=== PATIENT | male | born 1945 | race Caucasian/White ===

== ENCOUNTER → 2016-07-26 | Outpatient (CLI) | payer OTHER, MEDICARE ==
[~2016-07-26] MED LIST: ALBU8.5H6 INH; AMLO5TAB2 PO; BUDE10.2 IH; DOCU100C5 PO; FINA5TAB4 PO; IOHEXOL 180 MG/ML 10 ML VIAL. ONE; IPRA0.2S5 NEB; METH-37 PO; OMEG1CAP38 PO; OMEP20CA9 PO; SILD50TA PO; TERA10CA3 PO; TRAM50TA PO; VITA1TAB3 PO; ZOLP10TA4 PO; methylPREDNISolone ACETATE 40 MG/ML VIAL. ONE; methylPREDNISolone ACETATE 80 MG/ML VIAL. ONE
--- NOTE | 2016-07-27 01:06 | PAIN ---
DATE OF SERVICE: 07/26/2016 DIAGNOSES: Lumbar radiculopathy with lumbar degenerative disk disease, spinal stenosis and post-lumbar laminectomy syndrome. HISTORY OF PRESENT ILLNESS: The patient is a 71-year-old male who returns for followup status post lumbar epidural steroid injections, last seen 12/18/2015. The patient has undergone epidural injections with very good results about 50-75% improvement, but now the pain has returned. The patient has had interim surgery in April of this year, a L4 diskectomy for some significant stenosis, which is now ____ on new MRI scan, but still having pain across the low back and into the right hip and leg, mostly in the lateral and anterior aspect of the thigh and lateral posterior thigh on the right side. The patient reports he did very well after the surgery, but the pain began to return after significant extent in the same distribution. The patient did have a new MRI scan dated 07/17/2016 showing interval decompression and laminectomy at L4-L5 ____ the previous seen central stenosis, postoperative enhancing tissue in the epidural space extending superficially to the skin, small fluid collection within the laminectomy defect. L3-L4 shows extensive enhancing signal to the right of midline without convincing evidence of diskitis, moderate central stenosis is redemonstrated at that level also. L5-S1 shows severe degenerative disk narrowing with moderate annular bulging and bilateral hypertrophic facet arthrosis, moderate right neural foraminal stenosis, mild to moderate left neural foraminal stenosis. The patient reports no loss of motor function, significant tenderness however in the back and right leg, fatigue is much more easily than it used to, much worse with walking and standing. He walks about 10-15 minutes and then has to sit down and rest because the pain becomes more and more noticeable in the right lower extremity and low back. The patient reports a 10 on scale of 10 with standing and walking and 2 with sitting. PHYSICAL EXAMINATION: VITAL SIGNS: The patient's blood pressure 145/85, pulse 99, respirations 20, temperature 97.6 degrees Fahrenheit, weight is 196 pounds. GENERAL: The patient is awake, alert, oriented, appropriate, very pleasant demeanor. HEENT: Head shows normocephalic, atraumatic. Extraocular movements are intact and symmetrical. Oral cavity, mucous membranes are moist and pink. Dentition is intact. NECK: Shows anterior throat supple. Neck shows full rotational motion of the cervical spine without difficulty. CHEST: Shows normal on inspection. Breath sounds clear to auscultation bilaterally. HEART: Shows S1 and S2 clear. No murmurs are auscultated. ABDOMEN: Soft, nontender, nondistended. No palpable organomegaly is noted. No rebound or guarding demonstrated. BACK: The patient's back shows spine grossly midline, some moderate flattening of lumbar lordotic curvature is noted with extensive well-healed surgical scars in the midline. Lumbar paraspinous musculature shows symmetrical on inspection with palpation shows moderate tenderness with palpation bilaterally, but without radiation in the lumbar distribution. No tenderness over the sacrum or sacroiliac regions bilaterally. The patient does show good rotational motion all somewhat limited not secondary to any pain reported with extension and flexion, right and left lateral rotation. EXTREMITIES: The patient's lower extremities showed deep tendon reflexes 2+ in the patellar and 1+ tendo calcaneus tendons. Motor exam is strong with dorsiflexion, extension 5/5 with quadriceps and hamstring flexion as well. Options were discussed with the patient and the patient's old chart was reviewed and his current medication regimen updated. Current review of systems updated to date as well and we will proceed with a caudal approach epidural steroid injection today with fluoroscopic guidance. Risks were again discussed including, but not limited to bleeding, infection, possibility of epidural hematoma, subsequent neurologic compromise, dural punctures, headaches, spinal cord and/or nerve damage, side effects of steroid medication and poor results regarding pain control. The patient understands and wishes to proceed. The patient will return to clinic in approximately 2 weeks for followup, was counseled on return appointment, activity level and side effects to be aware of. DIAGNOSES: Lumbar radiculopathy with lumbar degenerative disk disease and spinal stenosis and post-lumbar laminectomy syndrome. PROCEDURE: Caudal approach epidural steroid injection using C-arm fluoroscopic guidance under sterile prep and drape using local anesthetic. Medication injected is 120 mg of Depo-Medrol plus 10 mL preservative free normal saline and 2 mL Isovue for contrast. CONDITION ON DISCHARGE: Stable. The patient tolerated the procedure well, had no complications. MARGIE HENAO MD DR: JU/mary ellen JOB#: [id number] / [id number]
== END ==
LOC: PNCL 09:00
PROVIDERS: ATTEND Anesthesiology
DX: M51.16 Intervertebral disc disorders with radiculopathy, lumbar region (principal); M48.06 Spinal stenosis, lumbar region; M96.1 Postlaminectomy syndrome, not elsewhere classified
CPT/HCPCS: 62323; J1030; J1040

== ENCOUNTER → 2016-08-09 | Outpatient (CLI) | payer OTHER, MEDICARE ==
--- NOTE | 2016-08-10 00:02 | PAIN ---
DATE OF SERVICE: 08/09/2016 PROGRESS NOTE FOR PAIN CLINIC DIAGNOSES: Lumbar radiculopathy with lumbar degenerative disk disease, spinal stenosis and post-lumbar laminectomy syndrome. HISTORY OF PRESENT ILLNESS: The patient is a 71-year-old male who returns for followup status post caudal epidural steroid injection x 1. The patient reports about 25% improvement in the low back and right lower extremity. The patient reports still some pain that is not every day, but is still burning and aching, dull, anywhere from 1-6 on a scale of 10 or it went up to a 9 with increased activity. The patient reports otherwise he feels that he is doing well. He is very pleased with his progress thus far, reports no new motor or sensory deficits, no new bowel or bladder incontinence or other complaints. The patient reports no difficulty with sleeping and is actually sleeping well at night. The pain is mostly with activity during the day, standing, walking and change from standing, sitting position is somewhat difficult when the pain is at its worst. PHYSICAL EXAMINATION: VITAL SIGNS: The patient's blood pressure is ____/75, pulse 83, respirations are 20, temperature 97.9 degrees Fahrenheit, weight is 195 pounds. GENERAL: The patient is awake, alert, oriented, appropriate, very pleasant demeanor. HEENT: Head shows normocephalic, atraumatic. Extraocular movements are intact and symmetrical. Oral cavity shows mucous membranes moist and pink. Dentition is intact. NECK: Shows anterior throat supple without palpable lymphadenopathy noted. Swallow reflex is symmetrical. CHEST: Shows normal on inspection. Breath sounds are clear to auscultation bilaterally. HEART: Shows S1 and S2 clear. No murmurs auscultated. ABDOMEN: Soft, nontender, nondistended. No palpable organomegaly is noted. No rebound or guarding demonstrated. BACK: Shows spine grossly in the midline. There is a well-healed surgical scar in the lumbar distribution in the midline. Lumbar paraspinous muscle shows symmetrical with inspection, with palpation shows normal muscle girth, somewhat firm musculature bilaterally in the middle and lower distribution of the paraspinous muscles, but only very mildly diffusely tender without radiation or trigger points. The patient has good rotational motion of the lumbar spine, both laterally as well as extension and flexion without difficulty. EXTREMITIES: The patient's lower extremities showed deep tendon reflexes at 2+ in the patellar tendons, 1+ tendo calcaneus tendons. Motor exam is strong with 5/5 dorsiflexion, extension, quadriceps and hamstring flexion and is equal and symmetrical bilaterally. Options were discussed with the patient. The patient's old chart was reviewed and his current medication regimen updated. Current review of systems is updated today. We will proceed with a second in the series of caudal approach epidural steroid injection with fluoroscopic guidance. Risks were again discussed including, but not limited to bleeding, infection, possibility of epidural hematoma, subsequent neurologic compromise, dural puncture, headaches, spinal cord and/or nerve damage, side effects of steroid medication and poor results regarding pain control. The patient understands and wishes to proceed. The patient will return to the clinic in approximately 2 weeks for followup, was counseled on return appointment, activity level and side effects to be aware of. DIAGNOSES: Lumbar radiculopathy with lumbar spinal stenosis, degenerative disk disease and post-laminectomy syndrome. PROCEDURE: Caudal approach epidural steroid injection using C-arm fluoroscopic guidance under sterile prep and drape using local anesthetic. MEDICATIONS INJECTED: 120 mg of Depo-Medrol plus 10 mL of preservative-free normal saline and 2 mL of Isovue for contrast. CONDITION AT DISCHARGE: Stable. The patient tolerated the procedure well, had no complications. MARGIE HENAO MD DR: JU/mary ellen JOB#: [id number] / [id number]
== END | disposition home or self-care (01) ==
LOC: PNCL 09:12
PROVIDERS: ATTEND Anesthesiology
DX: M51.16 Intervertebral disc disorders with radiculopathy, lumbar region (principal); M48.06 Spinal stenosis, lumbar region; M96.1 Postlaminectomy syndrome, not elsewhere classified
CPT/HCPCS: 62323; J1030; J1040

== ENCOUNTER → 2016-08-23 | Outpatient (CLI) | payer OTHER, MEDICARE ==
--- NOTE | 2016-08-23 16:13 | PAIN ---
DATE OF SERVICE: 08/23/2016 DIAGNOSES: Lumbar radiculopathy with lumbar degenerative disk disease, lumbar spinal stenosis and post-lumbar laminectomy syndrome. HISTORY OF PRESENT ILLNESS: The patient is a 71-year-old male, who returns for followup status post caudal epidural steroid injection x 2. The patient reports about 40%-50% improvement overall. Still some pain in the low back and leg on the right side, but significantly improved. The patient has been increasing daily activities greater ease and comfort, has been riding horse without significant discomfort and is very pleased with the progress. The patient reports pain anywhere from a 2 to 8 on a scale of 10, 8 only with his worst days. ____ most of the day, currently 2 on a scale of 10 today. The patient reports he has been sleeping well at night. The pain does not awaken him from sleep. He is sleeping 6-7 hours a night comfortably, reports no new motor or sensory deficits, no new bowel or bladder incontinence or other complaints. PHYSICAL EXAMINATION: VITAL SIGNS: The patient's blood pressure 148/98, pulse 87, respirations are 20, temperature 97.9 degrees Fahrenheit. Weight is 195 pounds. GENERAL: The patient is awake, alert, oriented, appropriate, very pleasant demeanor. HEENT: Head shows normocephalic, atraumatic. Extraocular movements are intact and symmetrical. Oral cavity, mucous membranes are moist and pink. Dentition is intact. NECK: Shows anterior throat supple without palpable lymphadenopathy noted. Swallow reflex is symmetrical. CHEST: Shows normal on inspection. Breath sounds clear to auscultation bilaterally. HEART: Shows S1 and S2 clear. ABDOMEN: Soft, nontender, nondistended. No palpable organomegaly. No rebound or guarding demonstrated. BACK: Shows spine grossly midline, some flattening of the lumbar lordotic curvature again appreciated with well-healed surgical scar in the midline. Lumbar paraspinous musculature is symmetrical on inspection with palpation shows some moderate tenderness with palpation only in the low lumbar distribution only diffusely and no radiation. EXTREMITIES: Lower extremities showed deep tendon reflexes at 2+ in the patellar, 1+ tendo-calcaneus tendons are equal. Motor exam is strong with 5/5 dorsiflexion, extension, quadriceps and hamstring flexion. Options were discussed with the patient and the patient's old chart was reviewed as his current medication regimen updated. Current review of systems updated today as well. We will proceed with a third in the series of caudal epidural steroid injection with fluoroscopic guidance. Risks were again discussed including, but not limited to bleeding, infection, possibility of epidural hematoma, subsequent neurologic compromise, dural puncture, headaches, spinal cord and/or nerve damage, side effects of steroid medication and poor results regarding pain control. The patient understands and wishes to proceed. The patient will return to the clinic in approximately 2 weeks for followup, was counseled on return appointment, activity level and side effects to be aware of. DIAGNOSES: Lumbar radiculopathy with lumbar degenerative disk disease, spinal stenosis and post-lumbar laminectomy syndrome. PROCEDURE: Caudal approach epidural steroid injection using C-arm fluoroscopic guidance under sterile prep and drape using local anesthetic. MEDICATIONS INJECTED: Depo-Medrol 120 mg plus 10 mL of preservative-free normal saline and 2 mL of Isovue for contrast. CONDITION AT DISCHARGE: Stable. The patient tolerated the procedure well, had no complications. MARGIE HENAO MD DR: JU/mary ellen JOB#: [id number] / [id number]
== END | disposition home or self-care (01) ==
LOC: PNCL 08:22
PROVIDERS: ATTEND Anesthesiology
DX: M51.16 Intervertebral disc disorders with radiculopathy, lumbar region (principal); M48.06 Spinal stenosis, lumbar region; M96.1 Postlaminectomy syndrome, not elsewhere classified
CPT/HCPCS: 62323; J1030; J1040

== ENCOUNTER → 2016-10-15 | Outpatient (CLI) | payer OTHER, MEDICARE ==
[~2016-10-15] MED LIST changes: +DOCU100C28 PO; -DOCU100C5 PO; -IOHEXOL 180 MG/ML 10 ML VIAL. ONE; -methylPREDNISolone ACETATE 40 MG/ML VIAL. ONE; -methylPREDNISolone ACETATE 80 MG/ML VIAL. ONE
== END | disposition home or self-care (01) ==
LOC: PNCL 09:20
PROVIDERS: ATTEND Anesthesiology
DX: M48.06 Spinal stenosis, lumbar region (principal); M51.16 Intervertebral disc disorders with radiculopathy, lumbar region; M96.1 Postlaminectomy syndrome, not elsewhere classified
CPT/HCPCS: G0463

== ENCOUNTER → 2017-01-16 | Outpatient (CLI) | payer OTHER, MEDICARE ==
[~2017-01-16] MED LIST changes: +IOHEXOL 180 MG/ML 10 ML VIAL. ONE; +methylPREDNISolone ACETATE 40 MG/ML VIAL. ONE; +methylPREDNISolone ACETATE 80 MG/ML VIAL. ONE
--- NOTE | 2017-01-17 06:08 | PAIN ---
DATE OF SERVICE: 01/16/2017 DIAGNOSES: Lumbar radiculopathy with lumbar degenerative disk disease, spinal stenosis, and post lumbar laminectomy syndrome. HISTORY OF PRESENT ILLNESS: The patient is a 71-year-old male who returns for followup status post caudal epidural steroid injections x 3, last seen on 10/15/2016. The patient did very well after the injection in August, about 50% improvement overall. The patient reports still significant pain across the low back and into the bilateral lower extremities, somewhat more on the right than the left, but tolerable. The patient has been having some physical therapy done and some chiropractic treatments, which he feels are helpful and reports his pain has decreased to as high as a 9 on a scale of 10, but is generally about a 6 and can be as low as a 4, which is where it is today. The patient reports it is aching, tingling, burning and radiating stabbing pain at times, can be throbbing and aching as well, again worse on the right lower extremity than the left in the posterior gluteus, posterior thigh and across the low back. The patient reports no new motor or sensory deficits. No new bowel or bladder incontinence. Reports awaking him from sleep occasionally, but not every night. He sleeps about 6 hours at a time and can easily reposition and get back to sleep. PHYSICAL EXAMINATION: VITAL SIGNS: Today, the patient's blood pressure is 144/____ pulse 78, respirations 18, temperature 98.1 degrees Fahrenheit, height is 5 feet 10 inches and weighs 196 pounds. GENERAL: The patient is awake, alert, oriented, appropriate, is a very pleasant demeanor. HEENT: Shows normocephalic, atraumatic. Extraocular movements intact and symmetrical. Oral cavity, mucous membranes are moist and pink. Dentition is intact. NECK: Shows anterior throat supple without palpable lymphadenopathy noted. Swallow reflex is symmetrical. CHEST: Shows normal with inspection. Breath sounds are clear to auscultation bilaterally. HEART: Shows S1, S2 clear. ABDOMEN: Soft, nontender, nondistended. No palpable organomegaly. There is no rebound or guarding demonstrated. BACK: Shows spine grossly in midline with some normal appearing thoracic kyphosis and flattening lumbar lordotic curvature. Previously well healed surgical scar is noted in the lumbar distribution. Lumbar paraspinous muscle shows symmetrical with inspection. On palpation, shows moderate tenderness with palpation in the low lumbar distribution only, slightly more on the right than the left, but present bilaterally, appears roughly symmetrical. No evidence of atrophy or hypertrophy. No trigger points. No radiation of pain. The patient has good rotation and motion of the lumbar spine, both laterally as well as extension and flexion without significant increase in pain. Lower extremities show deep tendon reflexes 2+ in the patella, 1+ tendo calcaneus tendons, are equal. Motor exam is strong with 5/5 dorsiflexion, extension, quadriceps and hamstring flexion. Peripheral pulses are 1+ posterior tibial and dorsalis pedis pulses. No peripheral edema is noted. Options were discussed with the patient. The patient's old chart was reviewed as her current medication regimen and updated. Current review of systems is updated today as well. We will proceed with the first in the series caudal approach epidural steroid injections with fluoroscopic guidance. Risks were discussed including, but not limited to bleeding, infection, possibility of epidural hematoma, and subsequent neurologic compromise, dural puncture, headaches, spinal cord and/or nerve damage, side effects of steroid medication, and poor results regarding pain control. The patient understands and wished to proceed. The patient will return to the clinic in approximately 2 weeks for followup, was counseled on return appointment, activity level and side effects to be aware of. DIAGNOSES: Lumbar radiculopathy with lumbar degenerative disk disease, spinal stenosis and post lumbar laminectomy syndrome. PROCEDURE: Caudal approach epidural steroid injection using C-arm fluoroscopic guidance under sterile prep and drape using local anesthetic. MEDICATIONS INJECTED: A total of 120 mg Depo-Medrol plus 10 mL preservative-free normal saline and 2 mL Isovue for contrast. CONDITION AT DISCHARGE: Stable. The patient tolerated the procedure well, had no complication. MARGIE HENAO MD DR: JU/mary ellen JOB#: [id number] / [id number]
== END | disposition home or self-care (01) ==
LOC: PNCL 10:28
PROVIDERS: ATTEND Anesthesiology
DX: M51.16 Intervertebral disc disorders with radiculopathy, lumbar region (principal); M48.06 Spinal stenosis, lumbar region; M96.1 Postlaminectomy syndrome, not elsewhere classified
CPT/HCPCS: 62323; J1030; J1040

== ENCOUNTER → 2017-01-30 | Outpatient (CLI) | payer OTHER, MEDICARE ==
--- NOTE | 2017-01-30 10:56 | PAIN ---
DATE OF SERVICE: 01/30/2017 PROGRESS NOTE FOR PAIN CLINIC DIAGNOSES: Lumbar radiculopathy with lumbar degenerative disk disease, spinal stenosis and post-lumbar laminectomy syndrome. HISTORY OF PRESENT ILLNESS: The patient is a 71-year-old male who returns for followup status post caudal epidural steroid injection x 1 with about 50% improvement. The patient is very pleased with his progress. He has been a quite a bit better with his increasing activity with greater ease and comfort and sleeping better at night. The patient reports his pain is still in the low back and the left lower extremity, posterior gluteus, posterior thigh, posterior calf with burning, cramping, aching pain and also in the top of his foot, the left side but much improved after last injection. The patient reports it is 7 on a scale of 10 at its worst, 4 on averages of 4 on a scale 10 today. The patient reports no new motor or sensory deficits, no new bowel or bladder incontinence or other complaints, sleeping better at night about 6 hours at a time. It does awaken him from sleep occasionally but not every night. The patient reports no new motor or sensory deficits, no new bowel or bladder incontinence or other complaints. PHYSICAL EXAMINATION: VITAL SIGNS: The patient's blood pressure 147/82, pulse 84, respirations 18, temperature 97.8 degrees Fahrenheit, height is 5 feet 10 inches and weighs 196 pounds. GENERAL: The patient is awake, alert, oriented, appropriate and very pleasant demeanor. HEENT: Head shows normocephalic and atraumatic. Extraocular movements are intact and symmetrical. Oral cavity shows mucous membranes moist and pink. Dentition is intact. NECK: Shows anterior throat supple. CHEST: Shows normal on inspection. Breath sounds clear to auscultation bilaterally. HEART: Shows S1 and S2 clear. ABDOMEN: Soft, nontender and nondistended. No palpable organomegaly. There is no rebound or guarding demonstrated. BACK: The patient's back shows spine grossly in the midline. Well healed surgical scars noted in the lumbar distribution with some flattening of the lumbar lordotic curvature. Lumbar paraspinous musculature shows some moderate tenderness with palpation but is symmetrical on inspection and only diffusely tender without radiation. EXTREMITIES: Lower extremities show deep tendon reflexes 2+ in the patellar, 1+ tendo-calcaneus tendons, are equal. Motor exam is strong with 5/5 dorsiflexion, extension, quadriceps and hamstring flexion. Peripheral pulses are 1+ posterior tibial and equal. Options were discussed with the patient and the patient's old chart was reviewed as his current medication regimen updated. Current review of systems updated today as well and we will proceed with a second in the series caudal epidural steroid injection today with fluoroscopic guidance. Risks were again discussed including but not limited to bleeding, infection, possibility of epidural hematoma, subsequent neurologic compromise, dural puncture, headaches, spinal cord and/or nerve damage, side effects of steroid medication and poor results regarding pain control. The patient understands and wishes to proceed. The patient will return to clinic in approximately 2 weeks for followup, was counseled on return appointment, activity level and side effects to be aware of. DIAGNOSES: Lumbar radiculopathy with lumbar degenerative disk disease, spinal stenosis and post-lumbar laminectomy syndrome. PROCEDURE: Caudal approach epidural steroid injection using C-arm fluoroscopic guidance under sterile prep and drape using local anesthetic. MEDICATIONS INJECTED: Total of 120 mg of Depo-Medrol plus 10 mL of preservative-free normal saline and 2 mL of Isovue for contrast. CONDITION AT DISCHARGE: Stable. The patient tolerated procedure well, had no complications. MARGIE HENAO MD DR: JU/nts JOB#: [id number] / [id number]
== END | disposition home or self-care (01) ==
LOC: PNCL 08:53
PROVIDERS: ATTEND Anesthesiology
DX: M51.16 Intervertebral disc disorders with radiculopathy, lumbar region (principal); M48.061 Spinal stenosis, lumbar region without neurogenic claudication; M96.1 Postlaminectomy syndrome, not elsewhere classified
CPT/HCPCS: 62323; J1030; J1040

== ENCOUNTER → 2017-03-04 | Outpatient (CLI) | payer OTHER, MEDICARE ==
--- NOTE | 2017-03-05 00:08 | PAIN ---
DATE OF SERVICE: 03/04/2017 DIAGNOSES: Lumbar radiculopathy with lumbar degenerative disk disease, lumbar spinal stenosis and post-lumbar laminectomy syndrome. HISTORY OF PRESENT ILLNESS: The patient is a 71-year-old male who returns for followup status post caudal epidural steroid injection x 2, last seen on 01/30/2017. The patient did very well with this, about 60% improvement, still complains of low back and left lower extremity pain now returning. It is a burning severe pain in the low back itself in the posterior gluteus, posterior thigh and the hip as well as in the posterior calf and into the lateral foot on the left side. Right side is resolved nearly completely. The patient reports the pain is burning and severe, radiating, stabbing, dull, also tight and sharp at times. He reports it is 8 on a scale of 10 at its worse, a 6 on average and 2 at its least. The patient reports it is a 3 today. The patient reports it has not been awakening him from sleep at night, is much better with lying down or sitting down and again after last injection was doing much better, had much greater ability to perform daily activities, sleeping well, continues to sleep well at night without disturbance from the pain. No new motor or sensory deficits. No new bowel or bladder incontinence or other complaints. PHYSICAL EXAMINATION: VITAL SIGNS: The patient's blood pressure 131/86, pulse 98, respirations are 18, temperature 98.4 degrees Fahrenheit, height is 5 feet 10 inches and weight is 197 pounds. GENERAL: The patient is awake, alert, oriented, appropriate and very pleasant demeanor. HEENT: Head shows normocephalic and atraumatic. Extraocular movements are intact and symmetrical. Oral cavity shows mucous membranes moist and pink. Dentition is intact. NECK: Shows anterior throat supple without palpable lymphadenopathy noted. Swallow reflex is symmetrical. CHEST: Normal on inspection. Breath sounds are clear to auscultation bilaterally. HEART: Shows S1 and S2 clear. ABDOMEN: Soft, nontender and nondistended. No palpable organomegaly. There is no rebound or guarding demonstrated. MUSCULOSKELETAL: The patient's back shows spine grossly in the midline. Normal appearing thoracic kyphosis and some flattening of lumbar lordotic curvature. There is a well-healed surgical scar noted. Lumbar paraspinous muscle shows symmetrical with palpation. With palpation shows moderate tenderness bilaterally in the middle and lower distribution, but only diffusely and appears roughly symmetrical. No evidence of atrophy or hypertrophy. The patient has good rotational motion both laterally as well as extension and flexion without any exacerbation of pain. Lower extremities showed deep tendon reflexes at 2+ in the patellar and 1+ tendo calcaneus tendons are equal. Motor exam is strong with 5/5 dorsiflexion, extension, quadriceps and hamstring flexion and symmetrical as well. Peripheral pulses are 1+ posterior tibial. No peripheral edema is noted bilaterally. Options were discussed with the patient and the patient's old chart was reviewed. His current medication regimen updated. Current review of systems updated today as well. We will proceed with a third in the series caudal approach epidural steroid injection with fluoroscopic guidance. Risks were again discussed including, but not limited to bleeding, infection, possibility of epidural hematoma, subsequent neurologic compromise, dural puncture, headaches, spinal cord and/or nerve damage, side effects of steroid medication and poor results regarding pain control. The patient understands and wishes to proceed. The patient will return to the clinic in approximately 2 weeks for followup. He was counseled on return appointment, activity level and side effects to be aware of. DIAGNOSIS: Lumbar radiculopathy with lumbar degenerative disk disease, post-lumbar laminectomy syndrome and spinal stenosis. PROCEDURE: Caudal approach epidural steroid injection using C-arm fluoroscopic guidance under sterile prep and drape using local anesthetic. MEDICATIONS INJECTED: A total of 120 mg of Depo-Medrol plus 10 mL preservative free normal saline and 2 mL Isovue for contrast. CONDITION AT DISCHARGE: Stable. The patient tolerated the procedure well and had no complications. MARGIE HENAO MD DR: JU/mary ellen JOB#: [id number] / [id number]
== END | disposition home or self-care (01) ==
LOC: PNCL 10:33
PROVIDERS: ATTEND Anesthesiology
DX: M51.16 Intervertebral disc disorders with radiculopathy, lumbar region (principal); M48.061 Spinal stenosis, lumbar region without neurogenic claudication; M96.1 Postlaminectomy syndrome, not elsewhere classified
CPT/HCPCS: 62323; J1030; J1040

== ENCOUNTER → 2017-08-07 | Outpatient (CLI) | payer OTHER, MEDICARE ==
[~2017-08-07] MED LIST changes: -ALBU8.5H6 INH; -AMLO5TAB2 PO; -BUDE10.2 IH; -DOCU100C28 PO; -FINA5TAB4 PO; +IOHEXOL 180 MG/ML 10 ML VIAL.; -IOHEXOL 180 MG/ML 10 ML VIAL. ONE; -IPRA0.2S5 NEB; -METH-37 PO; -OMEG1CAP38 PO; -OMEP20CA9 PO; -SILD50TA PO; -TERA10CA3 PO; -TRAM50TA PO; -VITA1TAB3 PO; -ZOLP10TA4 PO; +methylPREDNISolone ACETATE 40 MG/ML VIAL.; -methylPREDNISolone ACETATE 40 MG/ML VIAL. ONE; +methylPREDNISolone ACETATE 80 MG/ML VIAL.; -methylPREDNISolone ACETATE 80 MG/ML VIAL. ONE
== END ==
LOC: PNCL 11:20
DX: M51.16 Intervertebral disc disorders with radiculopathy, lumbar region (principal); M96.1 Postlaminectomy syndrome, not elsewhere classified; M48.061 Spinal stenosis, lumbar region without neurogenic claudication
CPT/HCPCS: 62323; J1030; J1040; Q9965

== ENCOUNTER → 2017-09-04 | Outpatient (CLI) | payer OTHER, MEDICARE | LOC: PNCL 09:07 | DX: M51.16 Intervertebral disc disorders with radiculopathy, lumbar region (principal); M96.1 Postlaminectomy syndrome, not elsewhere classified; M48.061 Spinal stenosis, lumbar region without neurogenic claudication | CPT/HCPCS: 62323; J1030; J1040; Q9965 ==

== ENCOUNTER → 2017-10-20 | Outpatient (CLI) | payer OTHER, MEDICARE ==
[~2017-10-20] MED LIST changes: +BUPIVACAINE MPF 0.25% 10 ML VIAL.
== END ==
LOC: PNCL 09:26
DX: M51.16 Intervertebral disc disorders with radiculopathy, lumbar region (principal); M48.061 Spinal stenosis, lumbar region without neurogenic claudication; M96.1 Postlaminectomy syndrome, not elsewhere classified; Z79.899 Other long term (current) drug therapy
CPT/HCPCS: 62323; J1030; J1040; J3490; Q9965

== ENCOUNTER → 2018-02-16 | Outpatient (CLI) | payer OTHER ==
[~2018-02-16] MED LIST changes: +ALBU8.5H6 INH; +AMLO5TAB7 PO; +BUDE10.2 IH; -BUPIVACAINE MPF 0.25% 10 ML VIAL.; +DOCU100C28 PO; +FINA5TAB4 PO; -IOHEXOL 180 MG/ML 10 ML VIAL.; +IOHEXOL 180 MG/ML 10 ML VIAL. ONE; +IPRA0.2S5 NEB; +LIDOCAINE 1% PF 2 ML VIAL. ONE; +METH-37 PO; +OMEG1CAP38 PO; +OMEP20CA9 PO; +SILD50TA PO; +TERA10CA3 PO; +TRAM50TA PO; +VITA1TAB3 PO; +ZOLP10TA4 PO; -methylPREDNISolone ACETATE 40 MG/ML VIAL.; +methylPREDNISolone ACETATE 40 MG/ML VIAL. ONE; -methylPREDNISolone ACETATE 80 MG/ML VIAL.; +methylPREDNISolone ACETATE 80 MG/ML VIAL. ONE
--- NOTE | 2018-02-16 21:05 | PAIN ---
DATE OF SERVICE: 02/16/2018 PROGRESS NOTE FOR PAIN CLINIC DIAGNOSES: Lumbar radiculopathy with lumbar spinal stenosis, lumbar degenerative disk disease and post lumbar laminectomy syndrome. HISTORY OF PRESENT ILLNESS: The patient is a 72-year-old male who returns for followup status post caudal epidural steroid injections, most recently on 10/20/2017. The patient did very well with this with about a 50% improvement that is now down to about 30% overall. Pain is in the low back into the bilateral lower extremities, more on the left than the right. The patient reports it is a 9 on a scale of 10 at its worst, 9 on average, 3 at its least and a 4 today. The patient reports it is burning, aching, shooting, stabbing and sometimes sharp, sometimes dull across the low back and into the left leg. The patient reports no new motor or sensory deficits, no new bowel or bladder incontinence or other complaints. PHYSICAL EXAMINATION: VITAL SIGNS: The patient's blood pressure is 121/52, pulse 60, respirations 18, temperature 98.1 degrees Fahrenheit. Height is 5 feet 10 inches, weight is 191 pounds. GENERAL: The patient is awake, alert, oriented, appropriate, very pleasant demeanor. HEENT: Head is normocephalic, atraumatic. Extraocular movements intact and symmetrical. Oral cavity: Mucous membranes moist and pink. Dentition is intact. NECK: Shows anterior throat supple without palpable lymphadenopathy noted. Swallow reflex is symmetrical. CHEST: Shows normal on inspection. Breath sounds clear to auscultation bilaterally. HEART: Shows S1, S2 clear. No murmurs auscultated. BACK: The patient's back shows spine grossly in the midline. Normal appearing thoracic kyphosis, some flattening of lordotic curvature with well-healed extensive midline surgical scar. Lumbar paraspinous muscle shows symmetrical on inspection, with palpation shows some moderate tenderness in upper, middle and lower distribution of paraspinous musculature without radiation, but with significant tenderness mainly in the lowest area of the lumbar paraspinous musculature. No radiation, no trigger points. There is good rotational motion of lumbar spine both laterally as well as extension and flexion. No tenderness over the sacrum or sacroiliac regions. EXTREMITIES: Lower extremities show deep tendon reflexes 2+ in the patellar and 1+ in tendo calcaneus tendons. Motor exam is strong with 5/5 dorsiflexion, extension, quadriceps and hamstring flexion and symmetrical. Peripheral pulses are 1+ posterior tibial. No peripheral edema is noted. Options were discussed with the patient. The patient's old chart was reviewed as his current medication regimen updated. Current review of systems updated today as well. We will proceed with a caudal approach epidural steroid injection today with fluoroscopic guidance. Risks were again discussed including, but not limited to, bleeding, infection, possibility of epidural hematoma, subsequent neurologic compromise, dural puncture, headaches, spinal cord and/or nerve damage, side effects of steroid medication and poor results regarding pain control. The patient understands and wished to proceed. The patient to return to clinic in approximately 2 weeks for followup, was counseled on his return appointment as well as side effects to be aware of. We also discussed the spinal cord stimulator with the patient and gave him some information to read about this and learn more. He will contact the office with any questions. DIAGNOSES: Lumbar radiculopathy with lumbar spinal stenosis, lumbar degenerative disk disease and post lumbar laminectomy syndrome. PROCEDURE: Caudal approach epidural steroid injection using C-arm fluoroscopic guidance under sterile prep and drape using local anesthetic. MEDICATIONS INJECTED: A total of 120 mg of Depo-Medrol plus 10 mL of preservative-free normal saline and 2 mL of Isovue for contrast. CONDITION ON DISCHARGE: Stable. The patient tolerated the procedure well, had no complications. MARGIE HENAO MD DR: JU/mary ellen JOB#: [id number] / [id number]
== END | disposition home or self-care (01) ==
LOC: PNCL 08:28
PROVIDERS: ATTEND Anesthesiology
DX: M51.16 Intervertebral disc disorders with radiculopathy, lumbar region (principal); M48.061 Spinal stenosis, lumbar region without neurogenic claudication; M96.1 Postlaminectomy syndrome, not elsewhere classified
CPT/HCPCS: 62323; J1030; J1040; Q9965

== ENCOUNTER → 2018-04-30 | Outpatient (CLI) | payer OTHER ==
[~2018-04-30] MED LIST changes: -LIDOCAINE 1% PF 2 ML VIAL. ONE
--- NOTE | 2018-04-30 10:26 | PAIN ---
DATE OF SERVICE: 04/30/2018 PROGRESS NOTE FOR PAIN CLINIC DIAGNOSES: Lumbar radiculopathy with lumbar degenerative disk disease, lumbar spinal stenosis and post-lumbar laminectomy syndrome. HISTORY OF PRESENT ILLNESS: The patient is a 72-year-old male who returns for followup status post caudal epidural steroid injections x 2, most recently on 03/30 and 02/16 prior to that. The patient reports he did very well with about a 60% improvement overall in the low back and left lower extremity greater than right, but still pain in both the legs. The patient reports it is a 9 on a scale of 10 at its worst, 7 on average, 3 at its least and is a 7 today. The patient reports it is aching, burning, radiating to the low back, mostly in the left posterior gluteus, posterior thigh, posterior calf as well as in the anterior aspect of the left leg. The patient reports no new motor or sensory deficits, no new bowel or bladder incontinence. We discussed a spinal cord stimulator with the patient, is awaiting preauthorization for a trial with his insurance provider. The patient reports it awakens him from sleep about every 7-8 hours. The patient reports no new motor or sensory deficits, no new bowel or bladder incontinence or other complaints. PHYSICAL EXAMINATION: VITAL SIGNS: The patient's blood pressure 134/85, pulse 87, respirations 16, temperature 97.9 degrees Fahrenheit. Weight is 196 pounds. GENERAL: The patient is awake, alert, oriented, appropriate, very pleasant demeanor. HEENT: Head shows normocephalic and atraumatic. Extraocular movements are intact and symmetrical. Oral cavity: Mucous membranes are moist and pink. Dentition is intact. NECK: Shows anterior throat is supple without palpable lymphadenopathy noted. Swallow reflex is symmetrical. CHEST: Shows normal with inspection. Breath sounds are clear to auscultation bilaterally. HEART: Shows S1 and S2 clear. No murmurs are auscultated. ABDOMEN: Soft, nontender and nondistended. No palpable organomegaly is noted. No rebound or guarding demonstrated. BACK: Shows spine grossly in the midline. Normal appearing thoracic kyphosis and lumbar lordotic curvature. Lumbar paraspinous muscle shows symmetrical on inspection. On palpation shows some moderate tenderness diffusely in the low lumbar distribution. Well-healed surgical scar is again noted. The patient shows good rotational motion of the lumbar spine both laterally as well as extension and flexion without difficulty. EXTREMITIES: The patient's lower extremities showed deep tendon reflexes at 2+ in the patellar tendons and 1+ tendo calcaneus tendons. Motor exam is strong with 5/5 dorsiflexion and extension. Peripheral pulses are 1+ in the posterior tibial distribution bilaterally. No peripheral edema is noted. Options were discussed with the patient. The patient's old chart was reviewed as was his current medication regimen updated. Current review of systems updated today as well. We will proceed with a caudal approach epidural steroid injection today third in the series with fluoroscopic guidance. Risks were again discussed including, but not limited to bleeding, infection, possibility of epidural hematoma, subsequent neurological compromise, dural puncture, headaches, spinal cord and/or nerve damage, side effects of steroid medication and poor results regarding pain control. The patient understands and wished to proceed. The patient will return to the clinic in approximately 2 weeks for followup, was counseled as to return appointment, activity level and side effects to be aware of. DIAGNOSES: Lumbar radiculopathy with lumbar degenerative disk disease, lumbar spinal stenosis and post-lumbar laminectomy syndrome. PROCEDURE: Caudal approach epidural steroid injection using C-arm fluoroscopic guidance under sterile prep and drape using local anesthetic. MEDICATION INJECTED: A total of 120 mg Depo-Medrol plus 10 mL of preservative free normal saline and 2 mL of Isovue for contrast. CONDITION AT DISCHARGE: Stable. The patient tolerated the procedure well and had no complications. MARGIE HENAO MD DR: JU/mary ellen JOB#: [id number] / [id number]
== END | disposition home or self-care (01) ==
LOC: PNCL 08:57
PROVIDERS: ATTEND Anesthesiology
DX: M51.16 Intervertebral disc disorders with radiculopathy, lumbar region (principal); M48.061 Spinal stenosis, lumbar region without neurogenic claudication; M96.1 Postlaminectomy syndrome, not elsewhere classified
CPT/HCPCS: 62323; J1030; J1040; Q9965

== ENCOUNTER → 2018-07-15 | Outpatient (CLI) | payer OTHER ==
[~2018-07-15] MED LIST changes: +AMLO5TAB10 PO; -AMLO5TAB7 PO; -IOHEXOL 180 MG/ML 10 ML VIAL. ONE; +LIDOCAINE 1% PF 2 ML VIAL. ONE; +OMEP20CA10 PO; -OMEP20CA9 PO; -methylPREDNISolone ACETATE 40 MG/ML VIAL. ONE; -methylPREDNISolone ACETATE 80 MG/ML VIAL. ONE
--- NOTE | 2018-07-16 03:00 | PAIN ---
DATE OF SERVICE: 07/15/2018 PROGRESS NOTE FOR PAIN CLINIC DIAGNOSES: Lumbar radiculopathy with lumbar degenerative disk disease, lumbar spinal stenosis and post-lumbar laminectomy syndrome. HISTORY OF PRESENT ILLNESS: The patient is a 73-year-old male who returns for followup status post epidural steroid injections and preauthorization for spinal cord stimulator temporary insertion trial. The patient has obtained this now as well as appropriate psychological evaluation with good category for implantable and spinal surgeries. The patient would like to proceed. However, still significant pain in the low back, left lower extremity, posterior gluteus, posterior thigh, lateral thigh, posterior calf, lateral calf as well on the left side greater than right, but across the low back as well. The patient reports the pain is 8 on a scale of 10 at its worst, 6 on average, 2 at its least and it is a 6 today. The patient reports it is tingling, burning, aching, shooting in the left leg, severe, becoming more constant with time and activity. The patient reports no new motor or sensory deficits, no new bowel or bladder incontinence or other complaints. It awakens him from sleep at least 4-5 times at night. PHYSICAL EXAMINATION: VITAL SIGNS: The patient's blood pressure 167/89, pulse 88, respirations are 16 and temperature is 97.5 degrees Fahrenheit. He is 5 feet 10 inches, weighs 191 pounds. GENERAL: The patient is awake, alert, oriented and appropriate, very pleasant demeanor. HEENT EXAMINATION: Shows normocephalic, atraumatic. Extraocular movements are intact and symmetrical. Oral cavity, mucous membranes are moist and pink. Dentition is intact. NECK: Shows anterior throat supple, without palpable lymphadenopathy noted. Swallow reflex is symmetrical. CHEST: Shows normal on inspection. Breath sounds are clear to auscultation bilaterally. HEART: Shows S1, S2 clear. No murmurs auscultated. ABDOMEN: Soft, nontender and nondistended. No palpable organomegaly is noted. No rebound or guarding demonstrated. BACK: Shows spine grossly in the midline. Normal-appearing thoracic kyphosis and flattening of the lumbar lordotic curvature fairly significantly, with well-healed surgical scarring noted as well. The patient shows good rotational motion with some limitation with extension and flexion secondary to pain and immobility from previous surgery. EXTREMITIES: The patient's lower extremities show deep tendon reflexes at 2+ in the patellar, 1+ tendo calcaneus tendons. Motor exam is strong with 5/5 dorsiflexion, extension, quadriceps and hamstring flexion and are symmetrical. Peripheral pulses are 1+ posterior tibial. No peripheral edema is noted bilaterally. Options were discussed with the patient. The patient's old chart was reviewed as was his current medication regimen updated. Current review of systems updated today as well. We will proceed with spinal cord stimulator temporary lead placement x 2. Risks were discussed including, but not limited to bleeding, infection, possibility of epidural hematoma and subsequent neurological compromise, dural punctures, headaches, spinal cord and/or nerve damage, side effects of exposure to fluoroscopy, potential poor results regarding pain control. The patient understands and wishes to proceed. The patient will return to clinic in approximately 1 week. We will plan on removal of the spinal cord stimulator leads at that time and assessment of the patient's progress through the week with pain reduction and decide at that point to pursue a more permanent stimulator system. DIAGNOSES: Lumbar radiculopathy with lumbar degenerative disk disease, lumbar spinal stenosis and post-lumbar laminectomy syndrome. PROCEDURE: Spinal cord stimulator temporary lead trial placement x 2. Under sterile prep and drape using local anesthetic, using C-arm fluoroscopic guidance with insertion at the L2-L3 level midline, using local anesthetic to anesthetize the skin, using a 14-gauge Wriggletead styletted needles x 2, with good access to the epidural space using preservative-free normal saline, loss of resistance technique with negative aspiration. Spinal cord stimulator leads were then threaded under direct visualization, both AP and lateral views, to assure posterior placement of the leads to the level of the superior endplate in the midline of T8 and superior endplate in the midline at T9. Again, confirmation was made with lateral views using C-arm fluoroscopic guidance. They were posterior in the epidural space. [place] were removed. Stylets were removed. Leads were secured to the skin using a suture and a sterile bandage and Mastisol, Tegaderm as well as gauze and tape sterilely placed above these. The patient tolerated the procedure well, had no complications. The patient left under his own power without immediate complication. MARGIE HENAO MD DR: JU/mary ellen JOB#: [id number] / [id number]
== END | disposition home or self-care (01) ==
LOC: PNCL 13:05
PROVIDERS: ATTEND Anesthesiology
DX: M51.16 Intervertebral disc disorders with radiculopathy, lumbar region (principal); M96.1 Postlaminectomy syndrome, not elsewhere classified; M48.061 Spinal stenosis, lumbar region without neurogenic claudication
CPT/HCPCS: 63650; C1897

== ENCOUNTER → 2018-07-20 | Outpatient (CLI) | payer OTHER ==
[~2018-07-20] MED LIST changes: -LIDOCAINE 1% PF 2 ML VIAL. ONE
--- NOTE | 2018-07-21 02:32 | PAIN ---
DATE OF SERVICE: 07/20/2018 DIAGNOSES: Lumbar radiculopathy with lumbar degenerative disk disease, lumbar spinal stenosis and post-lumbar laminectomy syndrome. HISTORY OF PRESENT ILLNESS: The patient is a 73-year-old male who returns for followup status post spinal cord stimulator temporary leads placement and returns today for removal of the leads. The patient reports still has significant pain in the low back and in his lower extremities as he had previously, especially in the left leg with burning sensation. He reports they did change him to a fourth program about 2 days ago, which decreased the pain significantly by about 50%, but he is still not certain if he wants to keep a permanent stimulator system. The patient reports no new motor or sensory deficits, no new changes, but still significant pain, which he reports was not significantly reduced other than the last 2 days from the stimulator temporary trial. The patient reports the pain is 8 on a scale of 10 at its worst, over the past week, is 6 on average and a 3 at its least and is a 6 today. The patient reports no new motor or sensory deficits, no new bowel or bladder incontinence, still sleeps well at night, does not bother him when he is lying down, much worse when he is walking, standing, changing positions. PHYSICAL EXAMINATION: VITAL SIGNS: The patient's blood pressure 142/82, pulse 99, respirations 18, temperature 98.3 degrees Fahrenheit, height is 5 feet 10 inches and weight is 191 pounds. GENERAL: The patient is awake, alert, oriented, appropriate, very pleasant demeanor. HEENT: Head shows normocephalic, atraumatic. Extraocular movements intact and symmetrical. Oral cavity: Mucous membranes moist and pink. Dentition is intact. NECK: Shows anterior throat supple without palpable lymphadenopathy noted. Swallow reflex symmetrical. CHEST: Shows normal with inspection. Breath sounds clear to auscultation bilaterally. HEART: Shows S1, S2 clear. ABDOMEN: Soft, nontender, nondistended. BACK: Shows spine grossly in the midline. The patient's back shows a well-bandaged temporary lead from spinal cord stimulator placement. Bandages were taken down, which reveals a clean, dry, no erythema, no tenderness at the area of the wire insertions. Sutures were cut under sterile prep and drape and the leads were removed x 2 with tips intact. Sites clean and dry, no erythema, no discharge, no tenderness. It was bandaged with a sterile bandage applied. EXTREMITIES: Lower extremities show deep tendon reflexes 2+ in the patellar, 1+ tendo-calcaneus tendons. Motor exam is strong with 5/5 dorsiflexion, extension and equal. Options were discussed with the patient. The patient's old chart was reviewed as his current medication regimen updated. Current review of systems updated today as well. We will have the patient return in approximately 1 week for potential caudal approach epidural steroid injection at that time. The patient is still unsure of the spinal cord stimulator effectiveness. We encouraged him to give it a few days to see how he feels before making any decisions. The patient will do so and return in about 1 week for followup as scheduled. MARGIE HENAO MD DR: JU/mary ellen JOB#: [id number] / [id number]
== END | disposition home or self-care (01) ==
LOC: PNCL 08:53
PROVIDERS: ATTEND Anesthesiology
DX: M51.16 Intervertebral disc disorders with radiculopathy, lumbar region (principal); M48.061 Spinal stenosis, lumbar region without neurogenic claudication; M96.1 Postlaminectomy syndrome, not elsewhere classified
CPT/HCPCS: G0463

== ENCOUNTER → 2018-07-27 | Outpatient (CLI) | payer OTHER ==
[~2018-07-27] MED LIST changes: +IOHEXOL 180 MG/ML 10 ML VIAL. ONE; +methylPREDNISolone ACETATE 40 MG/ML VIAL. ONE; +methylPREDNISolone ACETATE 80 MG/ML VIAL. ONE
--- NOTE | 2018-07-27 22:21 | PAIN ---
DATE OF SERVICE: 07/27/2018 DIAGNOSES: Lumbar radiculopathy with lumbar degenerative disk disease, lumbar spinal stenosis and post-lumbar laminectomy syndrome. HISTORY OF PRESENT ILLNESS: The patient is a 73-year-old male who returns for followup status post recent spinal cord stimulator trial. The patient without any significant improvement, actually pain he thought was actually worse with the spinal cord stimulator going. We removed those leads on 07/20/2018 and the patient returns today with pain still low back, left greater than right lower extremity radiating to posterior gluteus, posterior thigh, posterior calf, again worse on the left side. The patient reports it is an 8 on a scale of 10 at its worst, 6 on average, 3 at its least and is a 6 today. The patient reports it is aching and burning, becoming more constant and noticeable, worse with standing, walking, has not been waking him from sleep at night, better with sitting or lying down. The patient reports no new motor or sensory deficits, no new bowel or bladder incontinence. PHYSICAL EXAMINATION: VITAL SIGNS: The patient's blood pressure is 154/94, pulse 93, respirations 16, temperature 98.0 degrees Fahrenheit, weight is 193 pounds. GENERAL: The patient is awake, alert, oriented, appropriate, very pleasant demeanor. HEENT: Shows normocephalic, atraumatic. Extraocular movements are intact and symmetrical. Oral cavity: Mucous membranes are moist and pink. Dentition is intact. NECK: Shows anterior throat supple without palpable lymphadenopathy noted. Swallow reflex is symmetrical. CHEST: Shows normal on inspection. Breath sounds are clear to auscultation bilaterally. HEART: Shows S1, S2 clear. No murmurs auscultated. ABDOMEN: Soft, nontender, nondistended. No palpable organomegaly is noted. No rebound or guarding demonstrated. BACK: Shows spine grossly in the midline. Normal appearing thoracic kyphosis and some significant flattening of lumbar lordotic curvature. Well-healed surgical scarring noted. Lumbar paraspinous muscle shows symmetrical on inspection. On palpation shows some moderate tenderness diffusely bilaterally, but only diffusely without radiation. The patient has good rotational motion of lumbar spine, both laterally as well as extension and flexion. The patient's sites from previous spinal cord stimulator lead placed is very well healed with no erythema, no tenderness. EXTREMITIES: Lower extremities show deep tendon reflexes 2+ in the patellar, 1+ tendo-calcaneus tendons. Motor exam is strong with 5/5 dorsiflexion, extension, quadriceps and hamstring flexion and equal. Peripheral pulses are 1+ posterior tibia. No peripheral edema is noted bilaterally. Options were discussed with the patient. The patient's old chart was reviewed as his current medication regimen updated. Current review of systems is updated today as well. We will proceed with caudal approach epidural steroid injections, the second in this series today with fluoroscopic guidance. Risks were again discussed including, but not limited to bleeding, infection, possibility of epidural hematoma, subsequent neurological compromise, dural puncture, headaches, spinal cord and/or nerve damage, side effects of steroid medication and poor results regarding pain control. The patient understands and wished to proceed. The patient will return to the clinic in approximately 2 weeks for followup, was counseled on return appointment, activity level and side effects to be aware of. DIAGNOSES: Lumbar radiculopathy with lumbar degenerative disk disease, lumbar spinal stenosis and post-lumbar laminectomy syndrome. PROCEDURE: Caudal approach epidural steroid injection using C-arm fluoroscopic guidance under sterile prep and drape using local anesthetic. MEDICATION INJECTED: A total of 120 mg Depo-Medrol plus 10 mL of preservative-free normal saline and 2 mL of Isovue for contrast. CONDITION AT DISCHARGE: Stable. The patient tolerated the procedure well, had no complications. MARGIE HENAO MD DR: JU/mary ellen JOB#: [id number] / [id number]
== END | disposition home or self-care (01) ==
LOC: PNCL 08:29
PROVIDERS: ATTEND Anesthesiology
DX: M51.16 Intervertebral disc disorders with radiculopathy, lumbar region (principal); M48.061 Spinal stenosis, lumbar region without neurogenic claudication; M96.1 Postlaminectomy syndrome, not elsewhere classified
CPT/HCPCS: 62323; J1030; J1040; Q9965

== ENCOUNTER → 2019-11-10 | Outpatient (CLI) | payer OTHER ==
[~2019-11-10] MED LIST changes: -OMEP20CA10 PO; +OMEP20CA16 PO
--- NOTE | 2019-11-10 10:34 | PAIN ---
DATE OF SERVICE: 11/10/2019 PROGRESS NOTE FOR PAIN CLINIC DIAGNOSES: Lumbar radiculopathy with lumbar degenerative disk disease, lumbar spinal stenosis and lumbar post-laminectomy syndrome. HISTORY OF PRESENT ILLNESS: The patient is a 74-year-old male who returns for followup status post lumbar epidural steroid injections with caudal approach, most recently 07/2018. The patient did very well with about 80% improvement for about 3 months following the injection. The patient reports he has had difficulty getting referral back with his [facility], but he has changed physician, they got referral. He has had some pain going on for about 4-5 months now in the low back and left lower extremity, mostly in the posterior gluteus, posterior thigh and posterior calf. Rates it is a 9 on a scale of 10 at its worst over the past week, 7 on average, 3 at its least and is a 7 today. The patient reports it is aching, burning, shooting, radiating, becoming more severe, worse with walking, standing, changing positions, with sitting is better. He has to sit frequently though when he is working on his feet for more than about an hour. He has to sit and rest for about 10-15 minutes where he can get up and go again. The patient reports even that it is more significant, but better with lying down, does not awaken him from sleep at night, generally no new motor or sensory deficits, no new bowel or bladder incontinence. PHYSICAL EXAMINATION: VITAL SIGNS: The patient's blood pressure 146/94, pulse 105, respirations 18, temperature is 98.0 degrees Fahrenheit, height is 5 feet 10 inches, weighs 185 pounds. GENERAL: The patient is awake, alert, oriented, appropriate, very pleasant demeanor. HEENT: Shows normocephalic, atraumatic. Extraocular movements are intact and symmetrical. Oral cavity: Mucous membranes moist and pink. Dentition is intact. NECK: Shows anterior throat supple without palpable lymphadenopathy noted. Swallow reflex symmetrical. CHEST: Shows normal on inspection. Breath sounds are clear. No rales, rhonchi or wheezes auscultated. HEART: Shows S1, S2 clear. No murmurs auscultated. ABDOMEN: Soft, obese, nontender, nondistended. BACK: Shows spine grossly in the midline, slight exaggerated thoracic kyphosis and some minor flattening of lumbar lordotic curvature with well-healed surgical scarring noted. Lumbar paraspinous muscle shows symmetrical on inspection, on palpation shows some moderate tenderness diffusely bilaterally, but only diffusely throughout the upper, middle and lower distribution of paraspinous muscles without radiation. The patient has good rotational motion of lumbar spine, both laterally as well as extension and flexion without significant increase in pain. EXTREMITIES: Lower extremities show deep tendon reflexes at 1+ in the patellar and tendo-calcaneus tendons. Motor exam is 5/5 with dorsiflexion, extension, quadriceps and hamstring flexion symmetrical. Peripheral pulses are 1+ posterior tibia. No peripheral edema bilaterally. Options were discussed with the patient. The patient's old chart was reviewed as his current medication regimen updated. Current review of systems updated today as well and we will proceed with lumbar epidural steroid today with caudal approach using C-arm fluoroscopic guidance. Risks were again discussed including, but not limited to bleeding, infection, possibility of epidural hematoma, subsequent neurological compromise, dural puncture, headaches, spinal cord and/or nerve damage, side effects of steroid medication and poor results regarding pain control. The patient understands and wished to proceed. The patient will return to the clinic in approximately 2 weeks for followup. He was counseled on return appointment, activity level and side effects to be aware of. DIAGNOSES: Lumbar radiculopathy with lumbar degenerative disk disease, lumbar spinal stenosis, and lumbar post-laminectomy syndrome. PROCEDURE: Lumbar epidural steroid injection, caudal approach using C-arm fluoroscopic guidance under sterile prep and drape using local anesthetic. MEDICATION INJECTED: A total of 120 mg Depo-Medrol plus 10 mL of preservative-free normal saline and 2 mL of contrast. CONDITION AT DISCHARGE: Stable. The patient tolerated the procedure well, had no complications. MARGIE HENAO MD DR: JU/mary ellen JOB#: [id number] / [id number]
== END ==
LOC: PNCL 08:28
PROVIDERS: ATTEND Anesthesiology
DX: M51.16 Intervertebral disc disorders with radiculopathy, lumbar region (principal); M48.061 Spinal stenosis, lumbar region without neurogenic claudication; M96.1 Postlaminectomy syndrome, not elsewhere classified
CPT/HCPCS: 62323; J1030; J1040; Q9965

== ENCOUNTER → 2019-12-08 | Outpatient (CLI) | payer OTHER ==
--- NOTE | 2019-12-08 09:32 | PDOC ---
Progress Note - Pain Clinic Date of Service: DOS: DATE: 12/08/19 TIME: 09:29 Diagnosis: Dx: Lumbar radiculopathy with lumbar degenerative disc disease lumbar spinal stenosis and lumbar postlaminectomy syndrome History or Present Illness: HPI: 74-year-old male returns follow-up status post lumbar epidural injections caudal approach x1. Patient reports about 50% improvement for the first 2 weeks, then pain returning in the low back and left lower extremity posterior gluteus posterior thigh posterior calf patient which is burning and cramping radiating with walking standing walking also doing weed eating patient reports an 8 on a scale of 10 is worse of the past week 6 on average to its least is a 6 today. Patient ports no new motor or sensory deficits no new bowel or bladder incontinence still better with laying down or resting does not generally awaken him from sleep at night and better with sitting also. Physical Exam: VS: Blood pressure is 138/76 pulse 101 respirations 20 temperature is 90.4 F height is 5 feet 10 inches weight is 1 8 3 pounds PE: PHYSICAL EXAMINATION: GENERAL: The patient is awake, alert, oriented, appropriate, very pleasant demeanor HEENT: Shows normocephalic, atraumatic. Extraocular movements are intact and symmetrical. Oral cavity: Mucous membranes moist and pink. Dentition is intact. NECK: Shows anterior throat supple without palpable lymphadenopathy noted. Swallow reflex symmetrical. CHEST: Shows normal on inspection. Breath sounds are clear bilaterally, no rales rhonchi or wheezes auscultated. HEART: Shows S1, S2 clear. No murmurs auscultated. ABDOMEN: Soft, nontender, nondistended. No palpable organomegaly is noted. No rebound or guarding demonstrated. BACK: Shows spine grossly in the midline. Normal-appearing cervical lordotic curvature. There is slightly increased thoracic kyphosis, some minor flattening of the lumbar lordotic curvature. Lumbar paraspinous muscles show symmetrical on inspection, on palpation shows some moderate tenderness diffusely throughout the upper, middle and lower distribution of the paraspinous muscles bilaterally without specific trigger points, without radiation of pain. The patient has good rotational motion of the lumbar spine, both laterally as well as extension and flexion without significant difficulty. No tenderness over the spinous processes, sacrum or sacroiliac regions. EXTREMITIES: Lower extremities show deep tendon reflexes 1+ in the patellar and tendo calcaneus tendons. Motor exam is 5 on a scale of 5 with right dorsiflexion, extension, quadriceps and hamstring flexion and 5/5 on the left. Peripheral pulses are 1+ posterior tibial. [] peripheral edema is noted bilaterally. Lower extremities are warm and dry to touch, equal in color and appearance. SKIN: Shows warm and dry, good turgor. No edema. No sores, rashes or bruising throughout. Procedure: Procedure: Options were discussed with the patient. Patient's old chart was reviewed his his current medications were updated current review of systems updated today as well. We will proceed with a second in the series caudal approach epidural steroid injection today with fluoroscopic guidance. Risks are discussed including but not limited to bleeding infection possibility of epidural hematoma subsequent neurological compromise, dural puncture, headaches, spinal cord and/or nerve damage as well as poor results regarding pain control. Patient understands wished to proceed. Patient return to clinic in approximately 2 weeks for follow-up was counseled as to return appointment activity level and side effects to be aware of. Medication Injected: Med Injected: Procedure is lumbar epidural steroid injection under local anesthetic using derek rile prep and drape at the caudal level using C-arm fluoroscopic guidance in both AP and lateral views medications injected is 120 mg Depo-Medrol + 10 mL preservative-free normal saline and 2 mL Isovue for contrast- condition at discharge is stable patient tolerated procedure well had no complications. Condition at Discharge: Condition at Discharge: Condition at discharge is stable patient tolerated the procedure well had no complications. MARGIE HENAO MD Dec 08, 2019 09:32
== END | disposition home or self-care (01) ==
LOC: PNCL 08:38
PROVIDERS: ATTEND Anesthesiology
DX: M51.16 Intervertebral disc disorders with radiculopathy, lumbar region (principal); M48.061 Spinal stenosis, lumbar region without neurogenic claudication; M96.1 Postlaminectomy syndrome, not elsewhere classified; Z79.899 Other long term (current) drug therapy
CPT/HCPCS: 62323; J1030; J1040; Q9965

== ENCOUNTER → 2020-01-13 | Outpatient (CLI) | payer OTHER ==
--- NOTE | 2020-01-13 09:45 | PDOC ---
Progress Note - Pain Clinic Date of Service: DOS: DATE: 01/13/20 TIME: 09:42 Diagnosis: Dx: Lumbar radiculopathy with lumbar degenerative disc disease lumbar spinal stenosis and post lumbar laminectomy syndrome History or Present Illness: HPI: 74-year-old male returns follow-up status post caudal approach epidural steroid injection 2. Patient reports doing very well about 40% improvement overall has increased activity using a chainsaw and cutting up several trees last week which increases pain the low back and left lower extremity now describes as burning and aching in the low back radiating shooting into the left lower extremity tight and dull in the back radiating coming more constant with activity patient reports is better this week as he has been doing less activity but still significant patient rates his pain is 8 on a scale of 10 is worse over the past week 7 on average to displaces it to today. Patient reports that initially was doing much better with walking and doing house activities work activities as noted patient reports better with sitting or laying down does not awaken her from sleep at night patient reports no new motor or sensory deficits no new bowel or bladder incontinence or other complaints. Physical Exam: VS: Pressure is 143/80 pulse 99 respirations 18 temperature 98.7 F height is 5 feet 10 inches weight is 176 pounds PE: PHYSICAL EXAMINATION: GENERAL: The patient is awake, alert, oriented, appropriate, very pleasant demeanor HEENT: Shows normocephalic, atraumatic. Extraocular movements are intact and symmetrical. NECK: Shows anterior throat supple without palpable lymphadenopathy noted. Swallow reflex symmetrical. CHEST: Shows normal on inspection. Breath sounds are clear bilaterally, no rale s rhonchi or wheezes auscultated. HEART: Shows S1, S2 clear. No murmurs auscultated. ABDOMEN: Soft, nontender, nondistended. No palpable organomegaly is noted. BACK: Shows spine grossly in the midline. Normal-appearing cervical lordotic curvature. There is slightly increased thoracic kyphosis, some minor flattening of the lumbar lordotic curvature. Lumbar paraspinous muscles show symmetrical on inspection, on palpation shows some moderate tenderness diffusely throughout the upper, middle and lower distribution of the paraspinous muscles bilaterally without specific trigger points, without radiation of pain. The patient has goo d rotational motion of the lumbar spine, both laterally as well as extension and flexion without significant difficulty. No tenderness over the spinous processes, sacrum or sacroiliac regions. EXTREMITIES: Lower extremities show deep tendon reflexes 1+ in the patellar and tendo calcaneus tendons. Motor exam is 5 on a scale of 5 with right dorsiflexion, extension, quadriceps and hamstring flexion and 5/5 on the left. Peripheral pulses are 1+ posterior tibial. No peripheral edema is noted bilaterally. Lower extremities are warm and dry to touch, equal in color and appearance. SKIN: Shows warm and dry, good turgor. No edema. No sores, rashes or bruising throughout. Procedure: Procedure: Options discussed with the patient. Patient will chart was reviewed his current medication regimen updated current review of systems updated today as well. We will proceed with a caudal approach epidural steroid injection as a third in the series today with fluoroscopic guidance. Risks were discussed including but not limited to: Bleeding, infection, possibility of epidural hematoma and subsequent neurological compromise, dural puncture, headaches, spinal cord and/or nerve damage, side effects of steroid medication, and poor results regarding pain control. Patient understands wished to proceed. Patient return to clinic approximate 2 weeks for follow-up was counseled as to return appointment activity level and side effects to be aware of. Medication Injected: Med Injected: Procedure is lumbar epidural steroid injection under local anesthetic using sterile prep and drape at the caudal level using C-arm fluoroscopic guidance in both AP and lateral views medications injected is 120 mg Depo-Medrol + 10 mL preservative-free normal saline and 2 mL contrast- condition at discharge is stable patient tolerated procedure well had no complications. Condition at Discharge: Condition at Discharge: Condition at discharge stable patient tolerated procedure well had no complications. MARGIE HENAO MD Jan 13, 2020 09:45
== END | disposition home or self-care (01) ==
LOC: PNCL 08:58
PROVIDERS: ATTEND Anesthesiology
DX: M51.16 Intervertebral disc disorders with radiculopathy, lumbar region (principal); M48.061 Spinal stenosis, lumbar region without neurogenic claudication; Z79.899 Other long term (current) drug therapy
CPT/HCPCS: 62323; J1030; J1040; Q9965

== ENCOUNTER → 2020-08-24 | Outpatient (CLI) | payer OTHER ==
[~2020-08-24] MED LIST changes: +AMLO-186 PO; -AMLO5TAB10 PO
--- NOTE | 2020-08-24 12:33 | PDOC ---
Progress Note - Pain Clinic Date of Service: DOS: DATE: 08/24/20 TIME: 12:30 Diagnosis: Dx: Lumbar radiculopathy with lumbar degenerative disc disease lumbar spinal stenosis and lumbar postlaminectomy syndrome History or Present Illness: HPI: 75-year-old male returns to follow-up status post caudal epidural steroid injection last seen January 13, 2020. Patient reports did very well about 60% improvement for several months the pain is been returning now over the past 1 to 2 months in the low back bilateral lower extremities worse on the left than the right in the posterior gluteus rating the posterior thigh rating to the posterior calf and ankle on the left side worse with walking standing changing positions or sitting for prolonged periods patient reports is better with laying down and does not generally disturb him from sleep. Patient reports pain is aching and burning in the low back shooting and radiating the left lower extremity. Patient reports is an 8 on scale 10 is worse over the past week 5 on average to its least and is a 5 today. She reports no new motor or sensory deficits no new bowel or bladder incontinence. Physical Exam: VS: Blood pressure is 132/86 pulse 90 respirations 18 temperature is 98.1 F height is 5 foot 10 inches weight is 185 pounds PE: PHYSICAL EXAMINATION: GENERAL: The patient is awake, alert, oriented, appropriate, very pleasant demeanor HEENT: Shows normocephalic, atraumatic. Extraocular movements are intact and symmetrical. Oral cavity: Mucous membranes moist and pink. Dentition is intact. NECK: Shows anterior throat supple without palpable lymphadenopathy noted. Swallow reflex symmetrical. CHEST: Shows normal on inspection. Breath sounds are clear bilaterally, distant but no rales or rhonchi. HEART: Shows S1, S2 clear. No murmurs auscultated. ABDOMEN: Soft, nontender, nondistended, obese. No palpable organomegaly is noted. No rebound or guarding demonstrated. BACK: Shows spine grossly in the midline. Normal-appearing cervical lordotic curvature. There is slightly increased thoracic kyphosis, some minor flattening of the lumbar lordotic curvature. Well-healed surgical scarring is noted in lumbar distribution. Lumbar paraspinous muscles show symmetrical on inspection, on palpation shows some moderate tenderness diffusely throughout the upper, middle and lower distribution of the paraspinous muscles without specific trigger points, without radiation of pain. The patient has good rotational motion of the lumbar spine, both laterally as well as extension and flexion without significant difficulty. EXTREMITIES: Lower extremities show deep tendon reflexes 1 in the patellar and tendo calcaneus tendons. Motor exam is 5 on a scale of 5 with right dorsiflexion, extension, quadriceps and hamstring flexion and 5/5 on the left. Peripheral pulses are 1+ posterior tibial. No peripheral edema is noted bilaterally. Lower extremities are warm and dry. SKIN: Shows warm and dry, good turgor. No edema. No sores, rashes or bruising throughout. Procedure: Procedure: Options were discussed with the patient. Patient chart was reviewed his current medication regimen updated current review of systems updated today as well. We will proceed with a lumbar epidural steroid injections today with a caudal approach as the first in the series with fluoroscopic guidance. Risks were discussed including but not limited to: Bleeding, infection, possibility of epidural hematoma and subsequent neurological compromise, dural puncture, headaches, spinal cord and/or nerve damage, side effects of steroid medication, and poor results regarding pain control. Patient understands and wished to proceed. Patient will return to the clinic in approximate 2 weeks for follow- up, was counseled as return appointment, activity level, and side effects to be aware of. Medication Injected: Med Injected: Procedure is lumbar epidural steroid injection under local anesthetic using sterile prep and drape at the caudal level using C-arm fluoroscopic guidance in both AP and lateral views medications injected is 120 mg Depo-Medrol + 10 mL preservative-free normal saline and 2 mL contrast- condition at discharge is stable patient tolerated procedure well had no complications. Condition at Discharge: Condition at Discharge: Condition at discharge stable, patient alert procedure well and had no complications. MARGIE HENAO MD August 24, 2020 12:33
== END | disposition home or self-care (01) ==
LOC: PNCL 10:56
PROVIDERS: ATTEND Anesthesiology
DX: M51.16 Intervertebral disc disorders with radiculopathy, lumbar region (principal); M48.061 Spinal stenosis, lumbar region without neurogenic claudication; M96.1 Postlaminectomy syndrome, not elsewhere classified; Z79.899 Other long term (current) drug therapy
CPT/HCPCS: 62323; J1030; J1040; Q9965

== ENCOUNTER → 2020-10-11 | Outpatient (CLI) | payer OTHER ==
[~2020-10-11] MED LIST changes: -IOHEXOL 180 MG/ML 10 ML VIAL. ONE; -methylPREDNISolone ACETATE 40 MG/ML VIAL. ONE; -methylPREDNISolone ACETATE 80 MG/ML VIAL. ONE
--- NOTE | 2020-10-11 11:13 | PDOC ---
Progress Note - Pain Clinic Date of Service: DOS: DATE: 10/11/20 TIME: 11:10 Diagnosis: Dx: Lumbar radiculopathy with lumbar degenerative disc disease lumbar spinal stenosis and lumbar postlaminectomy syndrome History or Present Illness: HPI: 75-year-old male returns for follow-up status post caudal epidural steroid injection x1 last seen August 24, 2020. 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 Patient reports initially doing much better doing work activities household activities much greater ease and comfort travel with greater ease now the pain is beginning to bother him wakes him sleep very rarely patient reports is an 8 on scale 10 is worse over the past week for an average 3 to sleep is a 4 today. Patient reports no new motor or sensory deficit scribes pain is burning and aching the back radiating stabbing and shooting in the left lower extremity. Physical Exam: VS: Blood pressure is 139/93 pulse 83 respirations 20 temperature 90.0 F weight is 184 pounds height is 5 feet 10 inches PE: PHYSICAL EXAMINATION: GENERAL: The patient is awake, alert, oriented, appropriate, very pleasant in demeanor HEENT: Shows normocephalic, atraumatic. Extraocular movements are intact and symmetrical. Oral cavity: Mucous membranes moist and pink. NECK: Shows anterior throat supple without palpable lymphadenopathy noted. Swallow reflex symmetrical. CHEST: Shows normal on inspection. Breath sounds are clear bilaterally, no rales or rhonchi. HEART: Shows S1, S2 clear. No murmurs auscultated. ABDOMEN: Soft, nontender, nondistended, obese. BACK: Shows spine grossly in the midline. Normal-appearing cervical lordotic curvature. There is slightly increased thoracic kyphosis, some minor flattening of the lumbar lordotic curvature. Well-healed surgical scar is noted in the midline. Lumbar paraspinous muscles show symmetrical on inspection, on palpation shows some moderate tenderness diffusely throughout the upper, middle and lower distribution of the paraspinous muscles, but without specific trigger points, without radiation of pain. The patient has good rotational motion of the lumbar spine, both laterally as well as extension and flexion without significant difficulty. No tenderness over the spinous processes, sacrum or sacroiliac regions. EXTREMITIES: Lower extremities show deep tendon reflexes 1+ in the patellar and tendo calcaneus tendons. Motor exam is 5 on a scale of 5 with right dorsiflexion, extension, quadriceps and hamstring flexion and 5/5 on the left. Peripheral pulses are 1 posterior tibial. No peripheral edema is noted bilaterally. Lower extremities are warm and dry. SKIN: Shows warm and dry, good turgor. No edema. No sores, rashes or bruising throughout. Procedure: Procedure: Options were discussed with the patient. Patient's chart was reviewed his his current medication regimen updated current review of systems updated today as well. We will proceed with a second in the series caudal approach epidural steroid injection today with fluoroscopic guidance. Risks were discussed including but not limited to: Bleeding, infection, possibility of epidural hematoma and subsequent neurological compromise, dural puncture, headaches, spinal cord and/or nerve damage, side effects of steroid medication, and poor results regarding pain control. Patient understands and wished to proceed. Patient will return to clinic in approximate 2 weeks for follow-up was counseled as to return appointment activity level and side effects to be aware of. Medication Injected: Med Injected: Procedure is lumbar epidural steroid injection under local anesthetic using sterile prep and drape at the caudal level using C-arm fluoroscopic guidance in both AP and lateral views medications injected is 120 mg Depo-Medrol +10mL preservative-free normal saline and 2 mL contrast- condition at discharge is stable patient tolerated procedure well had no complications. Condition at Discharge: Condition at Discharge: Condition at discharge stable, patient alert procedure well had no complications. MARGIE HENAO MD Oct 11, 2020 11:13
== END | disposition home or self-care (01) ==
LOC: PNCL 10:20
PROVIDERS: ATTEND Anesthesiology
DX: M51.16 Intervertebral disc disorders with radiculopathy, lumbar region (principal); M48.061 Spinal stenosis, lumbar region without neurogenic claudication; M96.1 Postlaminectomy syndrome, not elsewhere classified; Z79.899 Other long term (current) drug therapy
CPT/HCPCS: 62323

== ENCOUNTER → 2020-11-24 | Outpatient (CLI) | payer OTHER ==
[~2020-11-24] MED LIST changes: +IOHEXOL 180 MG/ML 10 ML VIAL. ONE; +methylPREDNISolone ACETATE 40 MG/ML VIAL. ONE; +methylPREDNISolone ACETATE 80 MG/ML VIAL. ONE
--- NOTE | 2020-11-24 11:21 | PDOC ---
Progress Note - Pain Clinic Date of Service: DOS: DATE: 11/24/20 TIME: 11:17 Diagnosis: Dx: Lumbar radiculopathy with lumbar degenerative disease lumbar spinal stenosis and lumbar postlaminectomy syndrome History or Present Illness: HPI: 75-year-old male returns for follow-up status post caudal approach epidural steroid injections x2. Patient last seen October 11, 2020 did very well about 50% improvement overall in the low back and left lower extremity now returning pain in the back and the left leg grade is 8 on scale 10 is worse over the past week 7 on average 3 its least is a 7 today patient was aching burning can be dull and sharp alternating in the back and leg and shooting can be constant severe with activity patient reports better with sitting or laying down generally does not awaken him from sleep at night patient reports has been worse over the past week or so that has been quite a while has been very active with duties at work and on his feet quite a bit. Patient reports no bowel or bladder incontinence no loss of motor function. Physical Exam: VS: Blood pressure is 147/89 pulse 97 respirations 12 temperature is 98.2 F weight is 183 pounds PE: PHYSICAL EXAMINATION: GENERAL: The patient is awake, alert, oriented, appropriate, very pleasant in demeanor. HEENT: Shows normocephalic, atraumatic. Extraocular movements are intact and symmetrical. Oral cavity: Mucous membranes moist and pink. NECK: Shows anterior throat supple without palpable lymphadenopathy noted. Swallow reflex symmetrical. CHEST: Shows normal on inspection. Breath sounds are clear bilaterally, no rales rhonchi wheezes auscultated. HEART: Shows S1, S2 clear. No murmurs auscultated. ABDOMEN: Soft, nontender, nondistended gadget, obese. No palpable organomegaly is noted. BACK: Shows spine grossly in the midline. Normal-appearing cervical lordotic curvature. There is slightly increased thoracic kyphosis, some minor flattening of the lumbar lordotic curvature. Well-healed surgical scarring again noted. Lumbar paraspinous muscles show symmetrical on inspection, on palpation shows some moderate tenderness diffusely throughout the upper, middle and lower distribution of the paraspinous muscles, but without specific trigger points, without radiation of pain. The patient has good rotational motion of the lumbar spine, both laterally as well as extension and flexion without significant difficulty. No tenderness over the spinous processes, sacrum or sacroiliac regions. EXTREMITIES: Lower extremities show deep tendon reflexes 1+ in the patellar and tendo calcaneus tendons. Motor exam is 5 on a scale of 5 with right dorsiflexi on, extension, quadriceps and hamstring flexion and 5/5 on the left. Peripheral pulses are 1+ posterior tibial. No peripheral edema is noted bilaterally. Lower extremities are warm and dry. SKIN: Shows warm and dry, good turgor. No edema. No sores, rashes or bruising throughout. Procedure: Procedure: Options were discussed with patient. Patient chart was reviewed his current medication regimen updated current review of systems updated today as well. We will proceed with a third in the series caudal approach epidural steroid injection stable fluoroscopic guidance. Risks were discussed including but not limited to: Bleeding, infection, possibility of epidural hematoma and subsequent neurological compromise, dural puncture, headaches, spinal cord and/or nerve damage, side effects of steroid medication, and poor results regarding pain control. Patient understands and wished to proceed. Patient will return to the clinic in approximately 2 weeks for follow-up, was counseled as to return appointment activity level and side effects to be aware of. Medication Injected: Med Injected: Procedure is lumbar epidural steroid injection under local anesthetic using sterile prep and drape at the caudal level using C-arm fluoroscopic guidance in both AP and lateral views medications injected is 120 mg Depo-Medrol +10mL preservative-free normal saline and 2 mL contrast- condition at discharge is stable patient tolerated procedure well had no complications. Condition at Discharge: Condition at Discharge: Condition at discharge stable, patient alert the procedure well and had no complications. MARGIE HENAO MD Nov 24, 2020 11:21
--- NOTE | 2020-11-24 11:22 | PDOC4 ---
Procedure Note: ICD 10 Code: ICD 10 Code: M54.16 M4 8.07 M51.36 M 96.1 Procedure Note: Patient was consented for caudal approach epidural steroid injection today with fluoroscopic guidance. Risks were discussed including not limited bleeding infection possibly of epidural hematoma and subsequent neurological compromise dural puncture headache spinal cord and nerve damage side effects steroid medication exposure fluoroscopy and portals regarding pain control. Patient understands wished to proceed. Procedure is lumbar epidural steroid injection under local anesthetic using sterile prep and drape at the caudal level using C-arm fluoroscopic guidance in both AP and lateral views medications injected is 120 mg Depo-Medrol +10mL preservative-free normal saline and 2 mL contrast- condition at discharge is stable patient tolerated procedure well had no complications. MARGIE HENAO MD Nov 24, 2020 11:22
== END | disposition home or self-care (01) ==
LOC: PNCL 10:19
PROVIDERS: ATTEND Anesthesiology
DX: M51.16 Intervertebral disc disorders with radiculopathy, lumbar region (principal); M48.061 Spinal stenosis, lumbar region without neurogenic claudication; M96.1 Postlaminectomy syndrome, not elsewhere classified; Z79.899 Other long term (current) drug therapy
CPT/HCPCS: 62323; J1030; J1040; Q9965

== ENCOUNTER → 2021-03-21 | Outpatient (CLI) | payer OTHER ==
--- NOTE | 2021-03-21 09:36 | PDOC ---
Progress Note - Pain Clinic Date of Service: DOS: DATE: 03/21/21 TIME: 09:33 Diagnosis: Dx: Lumbar radiculopathy with lumbar degenerative disc disease lumbar spinal stenosis and lumbar postlaminectomy syndrome History or Present Illness: HPI: 75-year-old male returns for follow-up status post caudal epidural steroid injections in the past as well as new MRI scan which we discussed with him in detail today as well. Patient reports significant pain the low back more in the left lower extremity than the right into the posterior gluteus posterior thigh posterior calf on the left side patient reports radiates with walking standing changing positions generally better with sitting or laying down but with walking standing especially standing 1 position it is much worse and radiating the left leg patient reported an 8 on scale 10 is worse over the past week 6-7 on average and a 6 its least is a 7 today. Patient reports its tingling and burning in the leg aching and dull in the back and shooting in the left lower extremity patient reports no bowel or bladder incontinence. Patient initially had pain in both legs but now the right leg is doing better on the left leg is much more significantly affected. Physical Exam: VS: Blood pressure is 141/80 pulse 93 respirations 18 temperature is 98.3 F height 5 foot 10 inches weight is 178 pounds. PE: PHYSICAL EXAMINATION: GENERAL: The patient is awake, alert, oriented, appropriate, very pleasant in demeanor HEENT: Shows normocephalic, atraumatic. Extraocular movements are intact and symmetrical. Oral cavity: Mucous membranes moist and pink. Dentition is intact. NECK: Shows anterior throat supple without palpable lymphadenopathy noted. Swallow reflex symmetrical. CHEST: Shows normal on inspection. Breath sounds are clear bilaterally, distant coarse but no rales or rhonchi. HEART: Shows S1, S2 clear. No murmurs auscultated. ABDOMEN: Soft, nontender, nondistended. No palpable organomegaly is noted. BACK: Shows spine grossly in the midline. Normal-appearing cervical lordotic curvature. There is slightly increased thoracic kyphosis, some minor flattening of the lumbar lordotic curvature. Lumbar paraspinous muscles show symmetrical on inspection, on palpation shows some moderate tenderness diffusely throughout the upper, middle and lower distribution of the paraspinous muscles without specific trigger points, without radiation of pain. The patient has good rotational motion of the lumbar spine, both laterally as well as extension and f lexion without significant difficulty. EXTREMITIES: Lower extremities show deep tendon reflexes 1+ in the patellar and tendo calcaneus tendons. Motor exam is 5 on a scale of 5 with right dorsiflexion, extension, quadriceps and hamstring flexion and 5/5 on the left. Peripheral pulses are 1+ posterior tibial. No peripheral edema is noted bilaterally. Lower extremities are warm and dry to touch, equal in color and appearance. SKIN: Shows warm and dry, good turgor. No edema. No sores, rashes or bruising throughout. Procedure: Procedure: Options discussed with patient. Patient chart was reviewed his current medication regimen updated current review of systems updated today as well. We will proceed with a caudal approach epidural steroid injection stable fluoroscopic guidance. Risks were discussed including but not limited to: Bleeding, infection, possibility of epidural hematoma and subsequent neurological compromise, dural puncture, headaches, spinal cord and/or nerve da mage, side effects of steroid medication, and poor results regarding pain control. Patient understands and wished to proceed. Patient return to the clinic in approximate 2 weeks for follow-up, was counseled as return appointment, activity level, and side effect to be aware of. Medication Injected: Med Injected: Procedure is lumbar epidural steroid injection under local anesthetic using sterile prep and drape at the caudal level using C-arm fluoroscopic guidance in both AP and lateral views medications injected is 120 mg Depo-Medrol +10mL preservative-free normal saline and 2 mL contrast- condition at discharge is stable patient tolerated procedure well had no complications. Condition at Discharge: Condition at Discharge: Condition at discharge is stable, patient tolerated procedure well and had no complications. MARGIE HENAO MD Mar 21, 2021 09:36
--- NOTE | 2021-03-21 09:37 | PDOC4 ---
Procedure Note: ICD 10 Code: ICD 10 Code: M54.16 M4 8.06 M51.36 M 96.1 Procedure Note: Patient was consented for caudal approach epidural steroid injection today with fluoroscopic guidance. Risks were discussed including but not limited to: Bleeding, infection, possibility of epidural hematoma and subsequent neurolo gical compromise, dural puncture, headaches, spinal cord and/or nerve damage, side effects of steroid medication, and poor results regarding pain control. Patient understands and wished to proceed. Procedure is lumbar epidural steroid injection under local anesthetic using sterile prep and drape at the caudal level using C-arm fluoroscopic guidance in both AP and lateral views medications injected is 120 mg Depo-Medrol +10mL preservative-free normal saline and 2 mL contrast- condition at discharge is stable patient tolerated procedure well had no complications. MARGIE HENAO MD Mar 21, 2021 09:37
== END | disposition home or self-care (01) ==
LOC: PNCL 08:59
PROVIDERS: ATTEND Anesthesiology
DX: M51.16 Intervertebral disc disorders with radiculopathy, lumbar region (principal); M48.061 Spinal stenosis, lumbar region without neurogenic claudication; M96.1 Postlaminectomy syndrome, not elsewhere classified; Z79.899 Other long term (current) drug therapy
CPT/HCPCS: 62323; J1030; J1040; Q9965

== ENCOUNTER → 2021-04-04 | Outpatient (CLI) | payer OTHER ==
--- NOTE | 2021-04-04 09:34 | PDOC ---
Progress Note - Pain Clinic Date of Service: DOS: DATE: 04/04/21 TIME: 09:29 Diagnosis: Dx: Lumbar radiculopathy with lumbar degenerative disease lumbar spinal stenosis and lumbar postlaminectomy syndrome History or Present Illness: HPI: 75-year-old male returns for follow-up status post caudal approach epidural steroid injection last seen March 21, 2021 with very good results patient reports about 75% improvement initially but he was moving a freezer a few days ago and the pain returned after he strained his back getting out of his truck in the low back and left lower extremity posterior gluteus posterior thigh posterior calf into the ankle and foot patient reports prior to that she was doing much better with distance walking to his house activities work activities try with greater ease and comfort sleeping better and is been waking from sleep again at which it was not over the first few weeks after the injection patient reports it is now across the low back as well and new pain in the right lower extremity after moving the freezer the other day described as burning and aching patient reports its in the posterior gluteus and thigh as well. Patient reports is an aching pain is tingling and burning also sharp and dull alternating in the low back itself patient rates it as an 8 on scale 10 is worse over the past week 6 on average to its least and is a 6 today. Patient reports no bowel or bladder incontinence. Physical Exam: VS: Blood pressure 141/79 pulse 98 respirations 18 temperature 98.5 F height 5 feet 10 inches weight is 176 pounds PE: PHYSICAL EXAMINATION: GENERAL: The patient is awake, alert, oriented, appropriate, very pleasant in demeanor HEENT: Shows normocephalic, atraumatic. Extraocular movements are intact and symmetrical. Oral cavity: Mucous membranes moist and pink. NECK: Shows anterior throat supple without palpable lymphadenopathy noted. Swallow reflex symmetrical. CHEST: Shows normal on inspection. Breath sounds are clear bilaterally, no rales or rhonchi. HEART: Shows S1, S2 clear. No murmurs auscultated. ABDOMEN: Soft, nontender, nondistended. No palpable organomegaly is noted. BACK: Shows spine grossly in the midline. Normal-appearing cervical lordotic curvature. There is slightly increased thoracic kyphosis, some minor flattening of the lumbar lordotic curvature. Lumbar paraspinous muscles show symmetrical on inspection, on palpation shows some moderate tenderness diffusely throughout the upper, middle and lower distribution of the paraspinous muscles without specific trigger points, without radiation of pain. The patient has good rotational motion of the lumbar spine, both laterally as well as extension and flexion without significant difficulty. No tenderness over the spinous processes, sacrum or sacroiliac regions. EXTREMITIES: Lower extremities show deep tendon reflexes 1+ in the patellar and tendo calcaneus tendons. Motor exam is 5 on a scale of 5 with right dorsiflexion, extension, quadriceps and hamstring flexion and 5/5 on the left. Peripheral pulses are 1+ posterior tibial. No peripheral edema is noted bilaterally. Lower extremities are warm and dry. SKIN: Shows warm and dry, good turgor. No edema. No sores, rashes or bruising throughout. Procedure: Procedure: Options were discussed with the patient. Patient chart reviewed his current medication regimen updated current review of systems updated today as well. We will proceed with a caudal approach epidural steroid injection today with fluoroscopic guidance. Risks were discussed including but not limited to: Bleeding, infection, possibility of epidural hematoma and subsequent neurological compromise, dural puncture, headaches, spinal cord and/or nerve damage, side effects of steroid medication, and poor results regarding pain control. Patient understands and wished to proceed. Patient will return to the clinic in approximately 2 weeks for follow-up, was counseled return appointment, activity level, and side effect to be aware of. Medication Injected: Med Injected: Procedure is lumbar epidural steroid injection under local anesthetic using sterile prep and drape at the caudal level using C-arm fluoroscopic guidance in both AP and lateral views medications injected is 120 mg Depo-Medrol +10mL preservative-free normal saline and 2 mL contrast- condition at discharge is stable patient tolerated procedure well had no complications. Condition at Discharge: Condition at Discharge: Condition at discharge stable, patient tolerated the procedure well and had no complications. MARGIE HENAO MD Apr 04, 2021 09:34
--- NOTE | 2021-04-04 09:35 | PDOC4 ---
Procedure Note: ICD 10 Code: ICD 10 Code: M54.16 M51.36 M4 8.06 M 96.1 Procedure Note: Patient was consented for lumbar epidural steroid injection with fluoroscopic guidance. Risks were discussed including but not limited to: Bleeding, infection, possibility of epidural hematoma and subsequent neurological compromise, dural puncture, headaches, spinal cord and/or nerve damage, side effects of steroid medication, and poor results regarding pain control. Patient understands and wished to proceed. Procedure is lumbar epidural steroid injection under local anesthetic using sterile prep and drape at the caudal level using C-arm fluoroscopic guidance in both AP and lateral views medications injected is 120 mg Depo-Medrol +10mL preservative-free normal saline and 2 mL contrast- condition at discharge is stable patient tolerated procedure well had no complications. MARGIE HENAO MD Apr 04, 2021 09:35
== END | disposition home or self-care (01) ==
LOC: PNCL 09:00
PROVIDERS: ATTEND Anesthesiology
DX: M51.16 Intervertebral disc disorders with radiculopathy, lumbar region (principal); M48.061 Spinal stenosis, lumbar region without neurogenic claudication; M96.1 Postlaminectomy syndrome, not elsewhere classified; Z79.899 Other long term (current) drug therapy
CPT/HCPCS: 62323; J1030; J1040; Q9965

== ENCOUNTER → 2021-06-01 | Outpatient (CLI) | payer OTHER ==
[~2021-06-01] MED LIST changes: +DEXAMETHASONE PRES.FREE 10 MG/ML VIAL. ONE; -methylPREDNISolone ACETATE 40 MG/ML VIAL. ONE; -methylPREDNISolone ACETATE 80 MG/ML VIAL. ONE
--- NOTE | 2021-06-01 10:41 | PDOC ---
Progress Note - Pain Clinic Date of Service: DOS: DATE: 06/01/21 TIME: 10:37 Diagnosis: Dx: Lumbar radiculopathy with lumbar degenerative disease lumbar spinal stenosis with lumbar postlaminectomy syndrome History or Present Illness: HPI: 76-year-old male returns for follow-up status post caudal epidural steroid injection last seen April 04, 2021. Patient did very well with about 50% improvement overall in the low back and left lower extremity. Patient reports pain is returning over the past several weeks increasing low back rating to left lower extremity posterior gluteus lateral thigh anterior thigh medial thigh medial lower leg as well as the posterior calf patient reports is worse with walking standing changing positions, standing for more than 10 to 15 minutes exa cerbates the pain as does walking and getting up from seated position. Patient reports it wakes him from sleep about once or twice a night initially was doing much better after the last injection distance walking doing household activities work activities as well as sleeping well and performing everything fairly comfortably now the pain is returning. Patient reports over the past week he has had to sleep in a reclining chair secondary to the pain as well. Patient rates the pain a 9 on scale 10 is worst over the past week 6 on average and at its least is a 6, and is a 6 on a scale of 10 today. Patient reports no bowel or bladder incontinence, no loss of motor function but significant fatigability of the left lower extremity compared to the right. Physical Exam: VS: Blood pressure 120/67 pulse 71 respirations 18 temperature 98.8 F height is 5 feet 10-1/2 inches weight is 178 pounds PE: PHYSICAL EXAMINATION: GENERAL: The patient is awake, alert, oriented, appropriate, very pleasant in demeanor HEENT: Shows normocephalic, atraumatic. Extraocular movements are intact and symmetrical. Oral cavity: Mucous membranes moist and pink. Dentition is intact. NECK: Shows anterior throat supple without palpable lymphadenopathy noted. CHEST: Shows normal on inspection. Breath sounds are clear bilaterally, coarse but no rales or rhonchi auscultated. HEART: Shows S1, S2 clear. No murmurs auscultated. ABDOMEN: Soft, nontender, nondistended. No palpable organomegaly is noted. BACK: Shows spine grossly in the midline. Normal-appearing cervical lordotic curvature. There is mildly increased thoracic kyphosis, some flattening of the lumbar lordotic curvature, and well-healed surgical scar in the midline. Lumbar paraspinous muscles show symmetrical on inspection, on palpation shows some moderate tenderness diffusely throughout the upper, middle and lower distribution of the paraspinous muscles without specific trigger points, without radiation of pain. The patient has good rotational motion of the lumbar spine, both laterally as well as extension and flexion without significant difficulty. No tenderness over the spinous processes, sacrum or sacroiliac regions. EXTREMITIES: Lower extremities show deep tendon reflexes 1+ in the patellar and tendo calcaneus tendons. Motor exam is 5 on a scale of 5 with right dorsiflexion, extension, quadriceps and hamstring flexion and 4/5 on the left. Peripheral pulses are 1+ posterior tibial. No peripheral edema is noted bilaterally. Lower extremities are warm and dry. SKIN: Shows warm and dry, good turgor. No edema. No sores, rashes or bruising throughout. Procedure: Procedure: Options discussed with the patient. Patient's old chart was reviewed his current medication regimen updated current review of systems updated today as well. We will proceed with a caudal approach epidural steroid injection today with fluoroscopic guidance. Risks were discussed including but not limited to: Bleeding, infection, possibility of epidural hematoma and subsequent neurological compromise, dural puncture, headaches, spinal cord and/or nerve damage, side effects of steroid medication, and poor results regarding pain control. Patient understands and wished to proceed. Patient will return to the clinic in approximately 4 weeks for follow-up, was counseled as to return appointment, activity level, and side effect to be aware of. Medication Injected: Med Injected: Procedure is lumbar epidural steroid injection under local anesthetic using sterile prep and drape at the caudal level using C-arm fluoroscopic guidance in both AP and lateral views medications injected is 120 mg Depo-Medrol +10mL preservative-free normal saline and 2 mL contrast- condition at discharge is stable patient tolerated procedure well had no complications. Condition at Discharge: Condition at Discharge: Condition at discharge stable, paced tolerated procedure well and had no complic ations. MARGIE HENAO MD Jun 01, 2021 10:41
--- NOTE | 2021-06-01 10:42 | PDOC4 ---
Procedure Note: ICD 10 Code: ICD 10 Code: M54.16 M51.36 M 48.06 M 96.1 Procedure Note: Patient was consented for caudal approach epidural steroid injection with fluoroscopic guidance. Risks were discussed including but not limited to: Bleeding, infection, possibility of epidural hematoma and subsequent neurological compromise, dural puncture, headaches, spinal cord and/or nerve damage, side effects of steroid medication, and poor results regarding pain control. Patient understands and wished to proceed. Procedure is lumbar epidural steroid injection under local anesthetic using sterile prep and drape at the caudal level using C-arm fluoroscopic guidance in both AP and lateral views medications injected is 120 mg Depo-Medrol +10mL preservative-free normal saline and 2 mL contrast- condition at discharge is stable patient tolerated procedure well had no complications. MARGIE HENAO MD Jun 01, 2021 10:42
== END | disposition home or self-care (01) ==
LOC: PNCL 09:17
PROVIDERS: ATTEND Anesthesiology
DX: M51.16 Intervertebral disc disorders with radiculopathy, lumbar region (principal); M48.061 Spinal stenosis, lumbar region without neurogenic claudication; M96.1 Postlaminectomy syndrome, not elsewhere classified; Z79.899 Other long term (current) drug therapy; Z98.890 Other specified postprocedural states
CPT/HCPCS: 62323; J1100; Q9965

== ENCOUNTER → 2021-07-30 | Outpatient (CLI) | payer OTHER ==
[~2021-07-30] MED LIST changes: -DEXAMETHASONE PRES.FREE 10 MG/ML VIAL. ONE; -IOHEXOL 180 MG/ML 10 ML VIAL. ONE
--- NOTE | 2021-07-30 09:28 | PDOC ---
Progress Note - Pain Clinic Date of Service: DOS: DATE: 07/30/21 TIME: 09:06 Diagnosis: Dx: Lumbar radiculopathy lumbar degenerative disease lumbar spinal stenosis and lumbar postlaminectomy syndrome History or Present Illness: HPI: 36-year-old male returns for follow-up status post lumbar epidural steroid injections via caudal approach x3 most recently June 01, 2019 patient did very well initially without a 50% improvement but reports the pain is returned fairly significantly in the low back and into the right lower extremity with more of a burning sensation and has had previously in the low back and the left lower extremity most severely patient reports is worse with walking standing change positions better with sitting or laying down generally does not awaken from sleep at night patient reports initially was doing much better with walking between distances work activities household activities travel with greater ease and comfort as well but now the pain is returning fairly significantly patient reports aching and burning in the back tingling and burning in the left leg with more of a burning quality as noted patient rates as 8 on scale 10 is worse over the past week 6 on average 2 at its least, and is a 6 today. Patient reports no bowel or bladder incontinence. Patient reports he still taking tramadol 3 times a day but is not quite as effective as it has been in the past although he has no side effects with the medication. Physical Exam: VS: Blood pressure is 115/69 pulse 61 respirations 16 temperature 98.2 F weight is 180 pounds. PE: PHYSICAL EXAMINATION: GENERAL: The patient is awake, alert, oriented, appropriate, very pleasant in demeanor HEENT: Shows normocephalic, atraumatic. Extraocular movements are intact and symmetrical. Oral cavity: Mucous membranes moist and pink. Dentition is intact. NECK: Shows anterior throat supple without palpable lymphadenopathy noted. Swallow reflex symmetrical. CHEST: Shows normal on inspection. Breath sounds are clear bilaterally, distant but no rales or rhonchi auscultated. HEART: Shows S1, S2 clear. No murmurs auscultated. ABDOMEN: Soft, nontender, nondistended. No palpable organomegaly is noted. BACK: Shows spine grossly in the midline. Normal-appearing cervical lordotic curvature. There is mildly increased thoracic kyphosis, some significant flattening of the lumbar lordotic curvature, with well-healed surgical scarring noted. Lumbar paraspinous muscles show symmetrical on inspection, on palpation shows some moderate tenderness diffusely throughout the upper, middle and lower distribution of the paraspinous muscles, but without specific trigger points, without radiation of pain. The patient has good rotational motion of the lumbar spine, both laterally as well as extension and flexion without significant difficulty. EXTREMITIES: Lower extremities show deep tendon reflexes 1+ in the patellar and tendo calcaneus tendons. Motor exam is 5 on a scale of 5 with right dorsiflexion, extension, quadriceps and hamstring flexion and 5/5 on the left. Peripheral pulses are 1+ posterior tibial. No peripheral edema is noted bilaterally. Lower extremities are warm and dry. SKIN: Shows warm and dry, good turgor. No edema. No sores, rashes or bruising throughout. Procedure: Procedure: Options discussed with patient. Patient's old chart was reviewed his current medication regimen updated current review of systems updated today as well. We will prescribe Medrol Dosepak patient is given instructions well side effects aware with medication. Patient also instructed to call after the testing is completed if not significantly improved. Patient will continue with stretching strengthening exercises as we discussed as well as tramadol as previously p rescribed. Medication Injected: Med Injected: None Condition at Discharge: Condition at Discharge: Condition at discharge stable. MARGIE HENAO MD Jul 30, 2021 09:28
== END | disposition home or self-care (01) ==
LOC: PNCL 08:39
PROVIDERS: ATTEND Anesthesiology
DX: M51.16 Intervertebral disc disorders with radiculopathy, lumbar region (principal); M48.061 Spinal stenosis, lumbar region without neurogenic claudication; M96.1 Postlaminectomy syndrome, not elsewhere classified; Z79.899 Other long term (current) drug therapy
CPT/HCPCS: 99212; G0463

== ENCOUNTER → 2021-08-23 | Outpatient (CLI) | payer OTHER ==
[~2021-08-23] MED LIST changes: +DEXAMETHASONE PRES.FREE 10 MG/ML VIAL. ONE; +IOHEXOL 180 MG/ML 10 ML VIAL. ONE
--- NOTE | 2021-08-23 10:26 | PDOC ---
Progress Note - Pain Clinic Date of Service: DOS: DATE: 08/23/21 TIME: 10:20 Diagnosis: Dx: Lumbar radiculopathy with lumbar degenerative disease lumbar spinal stenosis lumbar postlaminectomy syndrome Myofascial pain History or Present Illness: HPI: 76-year-old male returns for follow-up status post lumbar epidural steroid injections via caudal approach last on June 01, 2021 patient last seen July 30, 2021 prescribed Medrol Dosepak at that time which helped a mild extent about 25% still pain in the low back left lower extremity patient reports new pain over the mid back now which is come on the last 2 weeks or so not the result of any specific injury or accident but is getting worse with pain in the musculature very tight firm cramping burning pain in the mid back worse with activity standing walking changing position specially bending and stooping and repetitive positions as well as just standing. Patient reports still has pain the low back left lower extremity rating the posterior gluteus posterior thigh posterior calf as well as the lateral anterior thighs and calf but is worse with activity only. Patient reports is better with sitting or laying down the mid upper back pain is better with heat and massage she has a massage chair at home which he uses which helps but it is not going away. Patient rates pain an 8 on scale 10 at its worst 5-8 on average 3 at its least and is a 7 today. Patient reports no bowel or bladder no loss of motor function. Physical Exam: VS: Blood pressure is 131/75 pulse 101 respirations 18 temperature 98.3 F height is 5 feet 10 inches weight is 179 pounds PE: PHYSICAL EXAMINATION: GENERAL: The patient is awake, alert, oriented, appropriate, very pleasant in demeanor HEENT: Shows normocephalic, atraumatic. Extraocular movements are intact and symmetrical. Oral cavity: Mucous membranes moist and pink. Dentition is intact. NECK: Shows anterior throat supple without palpable lymphadenopathy noted. Swallow reflex symmetrical. CHEST: Shows normal on inspection. Breath sounds are clear bilaterally, no rales rhonchi or wheezes auscultated. HEART: Shows S1, S2 clear. No murmurs auscultated. ABDOMEN: Soft, nontender, nondistended. No palpable organomegaly is noted. BACK: Shows spine grossly in the midline. Normal-appearing cervical lordotic curvature. There is slightly increased thoracic kyphosis, with significant tenderness in the paraspinous musculature in the lower thoracic paraspinous distribution bilaterally very firm ropelike musculature consistent with areas of trigger point musculature bilaterally without radiation very severely tender with palpation bilaterally, some flattening of the lumbar lordotic curvature, with well-healed surgical scarring noted.. Lumbar paraspinous muscles show symmetrical on inspection, on palpation shows some moderate tenderness diffusely throughout the upper, middle and lower distribution of the paraspinous muscles without specific trigger points, without radiation of pain. The patient has good rotational motion of the lumbar spine, both laterally as well as extension and flexion without significant difficulty. EXTREMITIES: Lower extremities show deep tendon reflexes 1+ in the patellar and tendo calcaneus tendons. Motor exam is 5 on a scale of 5 with right dorsiflexion, extension, quadriceps and hamstring flexion and 5/5 on the left. Peripheral pulses are 1+ posterior tibial. No peripheral edema is noted bilaterally. Lower extremities are warm and dry to touch, equal in color and appearance. SKIN: Shows warm and dry, good turgor. No edema. No sores, rashes or bruising throughout. Procedure: Procedure: Options discussed with the patient, patient will chart reviews his current medication regimen updated current review of systems updated today as well. We will proceed with a caudal approach epidural steroid injection stable fluoroscopic guidance. Risks were discussed including but not limited to: Bleeding, infection, possibility of epidural hematoma and subsequent neur ological compromise, dural puncture, headaches, spinal cord and/or nerve damage, side effects of steroid medication, and poor results regarding pain control. Patient understands and wished to proceed. Patient will return to clinic in approximately 2 weeks for follow-up, was counseled as return appointment, activity level, and side effect to be aware of. Medication Injected: Med Injected: Procedure is lumbar epidural steroid injection under local anesthetic using sterile prep and drape at the caudal level using C-arm fluoroscopic guidance in both AP and lateral views medications injected is 20 mg dexamethasone +10mL preservative-free normal saline and 2 mL contrast- condition at discharge is stable patient tolerated procedure well had no complications. Condition at Discharge: Condition at Discharge: Condition at discharge stable, patient tolerated the procedure well and had no complications. MARGIE HENAO MD August 23, 2021 10:26
--- NOTE | 2021-08-23 10:26 | PDOC4 ---
Procedure Note: ICD 10 Code: ICD 10 Code: M54.16 M51.36 M48.06 M96.1 Procedure Note: Patient was consented for lumbar epidural steroid injection caudal approach, with fluoroscopic guided. Risks were discussed including but not limited to: Bleeding, infection, possibility of epidural hematoma and subsequent neurologi kenzie compromise, dural puncture, headaches, spinal cord and/or nerve damage, side effects of steroid medication, and poor results regarding pain control. Patient understands and wished to proceed. Procedure is lumbar epidural steroid injection under local anesthetic using sterile prep and drape at the caudal level using C-arm fluoroscopic guidance in both AP and lateral views medications injected is 20 mg dexamethasone +10mL preservative-free normal saline and 2 mL contrast- condition at discharge is stable patient tolerated procedure well had no complications. MARGIE HENAO MD August 23, 2021 10:26
== END | disposition home or self-care (01) ==
LOC: PNCL 09:22
PROVIDERS: ATTEND Anesthesiology
DX: M51.16 Intervertebral disc disorders with radiculopathy, lumbar region (principal); M48.061 Spinal stenosis, lumbar region without neurogenic claudication; M96.1 Postlaminectomy syndrome, not elsewhere classified; M79.18 Myalgia, other site; Z79.899 Other long term (current) drug therapy
CPT/HCPCS: 62323; J1100; Q9965